=== PATIENT | male | born 1955 | race Caucasian/White ===

== ENCOUNTER 2018-07-27 17:31 | Observation (INO) ==
[2018-07-27] MEDS ORDERED: 0.9 % Sodium Chloride 500 ML IVC ONE (17:37)
[2018-07-27] MEDS ORDERED: Nitroglycerin 0.4 MG TAB.SUBL SL ONE (17:37)
--- NOTE | 2018-07-27 17:40 | Emergency Department Note ---
Disposition Clinical Impression: Alcoholism, Hypokalemia Chest pain Qualifiers: Chest pain type: unspecified Qualified Code(s): R07.9 - Chest pain, unspecified Disposition: Admitted As Inpatient Condition: Fair Referrals: Sheng Frazier DO [Primary Care Provider] - Forms: ED Satisfaction Letter Time of Disposition: 19:25 Chest Pain HPI - General Chief Complaint: ED Chest Pain Stated Complaint: chest pain Time Seen by Provider: 07/27/18 17:37 Source: patient Mode of arrival: EMS Limitations: no limitations Vital Signs Reviewed: Yes Nursing Notes Reviewed: Yes - History of Present Illness HPI Narrative: 63-year-old male with a history of tobacco use presents for evaluation of chest pain. Patient states chest pain started yesterday and has been intermittent since then. Noted to worsen prior to ED arrival. Notes anterior chest pressure without radiation. No aggravating or alleviating factors. Denies any dyspnea fevers or cough. Denies any nausea but does note some diaphoresis. Patient denies having history of heart attacks or stents. Patient presented via EMS. EMS gave full dose aspirin prior to arrival. Patient does state that he has been under a lot of stress with going through a divorce. Severity scale (1-10): 10 - Related Data Home Medications Medication Instructions Recorded Confirmed Diclofenac Sodium (24 HR) 100 mg PO DAILY 02/13/16 07/27/18 [Voltaren XR] Previous Rx's Medication Instructions Recorded Escitalopram [Lexapro] 20 mg PO DAILY #30 tablet 02/17/16 Allergies Allergy/AdvReac Type Severity Reaction Status Date / Time No Known Allergies Allergy Verified 07/27/18 17:36 All systems ED: reviewed and negative except as stated. Constitutional: Denies: fever Cardiovascular: Reports: chest pain Respiratory: Denies: cough, dyspnea, sputum production Gastrointestinal: Denies: abdominal pain, nausea, vomiting Chest Pain PMH - Past Medical History Medical history: Reports: arthritis, other Psychiatric history: Reports: depression - Social History Smoking Status: Current every day smoker Alcohol use: Reports: heavy, recent Drug use: Reports: none Physical Exam - General Limitations: no limitations General appearance: alert, in no apparent distress - Head Head exam: atraumatic, normocephalic, normal inspection - Eye Eye exam: Present: normal appearance, PERRL, EOMI - ENT ENT exam: normal exam - Neck Neck exam: Present: normal inspection - Chest Chest inspection: Present: normal inspection - Respiratory Respiratory exam: Present: normal lung sounds bilaterally. Absent: respiratory distress - Cardiovascular Cardiovascular exam: Present: regular rate, normal rhythm. Absent: systolic murmur - Abdominal Exam Abdominal exam: Present: soft, Non-Tender. Absent: guarding, rebound - Extremities Exam Extremities exam: Present: normal inspection - Back Exam Back exam: Present: normal inspection. Absent: CVA tenderness (L) - Neurological Exam Neurological exam: Present: alert, oriented X3, CN II-XII intact - Skin Skin exam: Present: warm, dry, intact, normal color Course Course Narrative: Patient arrived via EMS concerns of chest pain. Patient had aspirin prior to arrival. Patient will get cardiopulmonary evaluation with EKG, chest x-ray troponin. Patient will likely require admission for further evaluation given the patient's history and physical. - Reevaluation(s) Reevaluation #1: Patient states that the nitroglycerin did help relieve his chest pain. Patient also admits to being an alcoholic. States he drinks approximately a fifth a day. Time: 18:19 Vital Signs Temperature 97.7 F 07/27/18 17:34 Pulse Rate 82 07/27/18 17:34 Respiratory Rate 16 07/27/18 17:34 Blood Pressure 138/88 07/27/18 17:34 O2 Sat by Pulse Oximetry 100 07/27/18 17:34 Temperature 97.7 F 07/27/18 17:34 Pulse Rate 76 07/27/18 18:09 Respiratory Rate 18 07/27/18 18:09 Blood Pressure 125/73 07/27/18 18:09 O2 Sat by Pulse Oximetry 99 07/27/18 18:09 Oxygen Delivery Oxygen Delivery Room Air Chest Pain - [facility] Narrative Medical decision making narrative: Patient presented for concerns of chest pain. Patient has a negative troponin and relief of chest pain with nitroglycerin. Patient be admitted to hospital service for further evaluation and monitoring. Patient symptoms are not consistent with a pulmonary embolism or dissection. Patient also stated that he is not alcoholic. Given that information the patient had additional labs which shows low phosphorus. Patient's phosphorus as well as potassium was repleted ED. Patient is also given thiamine and folate. - Lab Data Lab results reviewed: Yes I reviewed the patient's lab results. Result diagrams: 07/27/18 17:48 07/27/18 17:48 Lab Results 07/27/18 07/27/18 07/27/18 Range/Units 17:48 17:48 17:48 WBC 6.9 (4.3-11.1) K/mcL RBC 4.16 L (4.19-5.50) M/mcL Hgb 15.6 (12.9-16.9) g/dL Hct 42.3 (37.5-50.1) % MCV 101.7 H (83.0-100.0) fL MCH 37.5 H (28.0-33.3) pg MCHC 36.9 H (31.6-35.5) g/dL RDW 13.3 (11.5-14.5) % Plt Count 94 L (140-400) K/mcL MPV 10.9 (9.4-12.4) fL Immature Gran % 0.3 (0-4) % Seg Neutrophils % 56.7 % Lymphocytes % 33.8 % Monocytes % 8.0 % Eosinophils % 0.6 % Basophils % 0.6 % Neutrophils # 3.9 (1.6-8.9) K/mcL Lymphocytes # 2.3 (0.6-4.6) K/mcL Monocytes # 0.6 (0.0-1.3) K/mcL Eosinophils # 0.0 (0.0-0.6) K/mcL Basophils # 0.0 (0.0-0.2) K/mcL PT 10.8 (9.4-12.1) Seconds INR 1.0 APTT 29.3 (26.0-36.0) Seconds Sodium (136-145) mEq/L Potassium (3.5-5.1) mEq/L Chloride (98-107) mEq/L Carbon Dioxide (23-29) mEq/L BUN (8-23) mg/dL Creatinine (0.70-1.30) mg/dL Est GFR ( Amer) (> 60) Est GFR (Non-Af Amer) (> 60) BUN/Creatinine Ratio (6-26) Glucose (70-105) mg/dL Calculated Osmolality (280-300) Calcium (8.6-10.3) mg/dL Phosphorus (2.7-4.5) mg/dL Magnesium (1.6-2.6) mg/dL Troponin I (< 0.04) ng/mL B-Natriuretic Peptide 21 (Less than 100) pg/mL 07/27/18 Range/Units 17:48 WBC (4.3-11.1) K/mcL RBC (4.19-5.50) M/mcL Hgb (12.9-16.9) g/dL Hct (37.5-50.1) % MCV (83.0-100.0) fL MCH (28.0-33.3) pg MCHC (31.6-35.5) g/dL RDW (11.5-14.5) % Plt Count (140-400) K/mcL MPV (9.4-12.4) fL Immature Gran % (0-4) % Seg Neutrophils % % Lymphocytes % % Monocytes % % Eosinophils % % Basophils % % Neutrophils # (1.6-8.9) K/mcL Lymphocytes # (0.6-4.6) K/mcL Monocytes # (0.0-1.3) K/mcL Eosinophils # (0.0-0.6) K/mcL Basophils # (0.0-0.2) K/mcL PT (9.4-12.1) Seconds INR APTT (26.0-36.0) Seconds Sodium 138 (136-145) mEq/L Potassium 3.0 L (3.5-5.1) mEq/L Chloride 98 (98-107) mEq/L Carbon Dioxide 22 L (23-29) mEq/L BUN 13 (8-23) mg/dL Creatinine 0.68 L (0.70-1.30) mg/dL Est GFR ( Amer) > 60 (> 60) Est GFR (Non-Af Amer) > 60 (> 60) BUN/Creatinine Ratio 19 (6-26) Glucose 126 H (70-105) mg/dL Calculated Osmolality 288 (280-300) Calcium 9.0 (8.6-10.3) mg/dL Phosphorus 1.6 L (2.7-4.5) mg/dL Magnesium 1.8 (1.6-2.6) mg/dL Troponin I < 0.03 (< 0.04) ng/mL B-Natriuretic Peptide (Less than 100) pg/mL - Radiology Data Radiology results reviewed: Yes I reviewed the patient's radiology results. Chest X-Ray 07/27/18 17:37 IMPRESSION: No acute process. D/ / Shoaib Johnson MD / Shoaib Johnson MD Interpreting Provider: Shoaib Johnson MD - EKG Data EKG attestation: Yes I reviewed and interpreted this EKG. EKG shows normal: sinus rhythm Rate: normal Rhythm: NSR [place]/QRS: normal Interpretation: no acute changes, nonspecific ST-T wave changes Heart Score - Score History: Moderately Suspicious EKG: Non Specific repolarisation Disturbance Age: 45-65 Risk Factors: 1-2 risk factors Troponin: Less than normal limit HEART Score Total: 4 S.B.A[place] Situation: Demographics Background: Presenting Complaint Assessment: Vital Signs, Course and respsone to treatment, Patient/Family Expectation Recommendation: Barrier(s) to disposition, Recommendation based on pending studies, treatments, or consults S.B.AJoseRJose Report Given to: Hospitalist Luba Repor Time: 19:26
--- NOTE | 2018-07-27 17:50 | Emergency Department Note ---
Disposition Clinical Impression: Chest pain Qualifiers: Chest pain type: unspecified Qualified Code(s): R07.9 - Chest pain, unspecified Disposition: Admitted As Inpatient Forms: ED Satisfaction Letter General Adult HPI - General Chief complaint: ED Chest Pain Stated complaint: chest pain Time Seen by Provider: 07/27/18 17:37 Source: patient Mode of arrival: EMS Limitations: no limitations - History of Present Illness Pain Scale: 10 - Related Data Home Medications Medication Instructions Recorded Confirmed Diclofenac Sodium (24 HR) 100 mg PO DAILY 02/13/16 02/13/16 [Voltaren XR] Oxycodone HCl/Acetaminophen 1 - 2 each PO TID PRN 02/13/16 02/13/16 [Percocet 5-325 mg Tablet] Previous Rx's Medication Instructions Recorded Chlordiazepoxide [Librium] 75 mg PO AD #62 capsule 02/17/16 Escitalopram [Lexapro] 20 mg PO DAILY #30 tablet 02/17/16 Nicotine Patch [Nicoderm] 14 mg TD DAILY #21 patch.[id number] 02/17/16 Vitamin B Complex/Vit C/Vit E 1 each PO DAILY #30 tablet 02/17/16 [Stresstab] Allergies Allergy/AdvReac Type Severity Reaction Status Date / Time No Known Allergies Allergy Verified 07/27/18 17:36 Constitutional: Denies: fever Cardiovascular: Reports: chest pain Respiratory: Denies: cough, dyspnea, sputum production Gastrointestinal: Denies: abdominal pain, nausea, vomiting Past Medical History - Past Medical History Medical history: Reports: arthritis, other Psychiatric history: Reports: depression - Social History Smoking Status: Current every day smoker Smokeless Tobacco Status: No Alcohol use: Reports: heavy, recent Drug use: Reports: none Physical Exam - General Limitations: no limitations General appearance: alert, in no apparent distress Course Vital Signs Temperature 97.7 F 07/27/18 17:34 Pulse Rate 82 07/27/18 17:34 Respiratory Rate 16 07/27/18 17:34 Blood Pressure 138/88 07/27/18 17:34 O2 Sat by Pulse Oximetry 100 07/27/18 17:34 Temperature 97.7 F 07/27/18 17:34 Pulse Rate 82 07/27/18 17:34 Respiratory Rate 16 07/27/18 17:34 Blood Pressure 138/88 07/27/18 17:34 O2 Sat by Pulse Oximetry 100 07/27/18 17:34 Oxygen Delivery Oxygen Delivery Room Air Attestation Statement - Attestation Attestation: I examined this patient and my medical decision-making was reviewed with the Resident Physician. I agree with the documented findings, disposition and treatment plan as described except to the extent set forth below. 63 year old male presents to the ED with complaints of chest pain midsternally with exertional dyspnea and diaphoresis and states that this has been going for two days. He has mutliple risk factors and EKG is nonsichemic appearing but we will admit to medicine after cardiopulmoary workup for ACS.
[2018-07-27 18:11] LABS: Basophils % 0.6 %; Eosinophils % 0.6 %; Hematocrit 42.3 % (37.5-50.1); Hemoglobin 15.6 g/dL (12.9-16.9); Immature Granulocytes % 0.3 % (0-4); Lymphocytes # 2.3 K/mcL (0.6-4.6); Lymphocytes % 33.8 %; Mean Corpuscular HGB Conc 36.9 g/dL (31.6-35.5); Mean Corpuscular Hemoglobin 37.5 pg (28.0-33.3); Mean Corpuscular Volume 101.7 fL (83.0-100.0); Mean Platelet Volume 10.9 fL (9.4-12.4); Monocytes # 0.6 K/mcL (0.0-1.3); Neutrophils # 3.9 K/mcL (1.6-8.9); Red Blood Count 4.16 M/mcL (4.19-5.50); Red Cell Distribution Width 13.3 % (11.5-14.5); Segmented Neutrophils % 56.7 %
[2018-07-27 18:12] LABS: Platelet Count 94 K/mcL (140-400)
[2018-07-27 18:16] LABS: Prothrombin Time 10.8 Seconds (9.4-12.1)
[2018-07-27 18:18] LABS: Activated Partial Thrombo Time 29.3 Seconds (26.0-36.0)
[2018-07-27 18:27] LABS: Troponin I < 0.03 ng/mL (< 0.04)
[2018-07-27 18:29] LABS: BUN/Creatinine Ratio 19 (6-26); Blood Urea Nitrogen 13 mg/dL (8-23); Carbon Dioxide 22 mEq/L (23-29); Chloride 98 mEq/L (98-107); Glucose 126 mg/dL (70-105); Osmolality,Calculated 288 (280-300); Sodium 138 mEq/L (136-145); eGFR For Non-African Americans > 60 (> 60)
[2018-07-27 18:54] LABS: Magnesium 1.8 mg/dL (1.6-2.6); Phosphorous 1.6 mg/dL (2.7-4.5)
[2018-07-27] MEDS ORDERED: Folic Acid 1 MG TABLET PO ONE (18:54)
[2018-07-27] MEDS ORDERED: Thiamine (B-1) 100 MG TABLET PO ONE (18:54)
[2018-07-28] MEDS ORDERED: *HR* LORazepam 2 MG/ML VIAL IVP PRN (05:31)
[2018-07-28] MEDS ORDERED: Naloxone 0.4 MG/ML INJ IVP PRN (05:31)
[2018-07-28] MEDS ORDERED: *HR* Promethazine 25 MG/ML VIAL IVP PRN (05:31)
--- NOTE | 2018-07-28 05:43 | Internal Med History&Physical ---
Date of Encounter: 07/28/18 Time of Encounter: 05:38 Internal Medicine - H&P: HPI Chief complaint: chest pain; epigastric pain Admitted From: Emergency Dept Plans for Post Hospital Care: Home History of present illness: Mr. Loco is a 63 year old male who presents to the ER tonight with complaints of chest pain and, more prominently, epigastric pain. Symptoms started yesterday while at rest. He has had some nausea but no vomiting. He has had no shortness of breath, no dyspnea, and no diaphoresis. Workup in the ER was negative, but he was admitted to hospitalist service nonetheless. Of note, ER relayed to me that he drinks heavy amounts of alcohol. Upon my assessment of the patient, he was having some jitters and agitation concerning for early alcohol withdrawal. He readily admits to excessive alcohol intake for the last several years. He drinks a fifth of liquor everyday to every two days. He also takes NSAIDs on a daily basis. He denies any hematemesis, melena, or hematochezia. Pain is predominantly in the epigastrium right below his xiphoid process. It radiates upwards to his chest but it starts at the epigastrium. He denies any prior heart disease or chest pain before. He still has his gallbladder and also notes that he has had some GI intolerance with fatty, greasy foods. Regarding his alcohol intake, he has gone through withdrawal on a few occasions and has been hospitalized twice for it in the past. Past Med Surg Social Fam HX - Past Medical History Attestation: Yes The following information was validated with the patient. Source: patient, old records reviewed Medical history: arthritis, other Additional medical history: chronic back pain Psychiatric history: depression - Past Surgical History Surgical History: orthopedic, other (lumbar spine surgery) Additional surgical history: lumbar laminectomy, knee scope, tonsilectomy - Social History Smoking Status: Current every day smoker Packs per day: 1.5 Smokeless Tobacco Status: No Alcohol use: heavy, recent Drug use: marijuana Current living situation: Home Activity Level: Independent ambulation Recent Out of Country Travel Within the Last 8 Weeks: No - Family History Mother Living Status: Internal Medicine - H&P: Meds Diclofenac Sodium (24 HR) [Voltaren XR] 100 mg PO DAILY 02/13/16 [History] Escitalopram [Lexapro] 20 mg PO DAILY #30 tablet 02/17/16 [Rx] 3 Allergy/AdvReac Type Severity Reaction Status Date / Time No Known Allergies Allergy Verified 07/27/18 17:36 - Constitutional Constitutional: anorexia, no chills, no fever(s), no night sweats - EENT Eyes: no blurry vision, no change in vision Ears: no ear pain, no tinnitus Nose, mouth and throat: no nasal congestion, no sinus pressure, no sore throat - Cardiovascular Cardiovascular ROS IM: chest pain, palpitations, no diaphoresis, no dyspnea, no dyspnea on exertion, no orthopnea, no syncope - Respiratory Respiratory: no cough, no hemoptysis, no chest congestion, no excessive phlegm production, no change in phlegm color - Gastrointestinal Gastrointestinal: abdominal pain (pigastrium), belching, dyspepsia, early satiety, heartburn, nausea, no diarrhea, no hematemesis, no hematochezia, no melena, no vomiting - Genitourinary Genitourinary ROS male: no dysuria, no flank pain, no hematuria - Musculoskeletal Musculoskeletal ROS IM: back pain, no arthralgias - Integumentary Integumentary IM: no rash, no jaundice - Neurological Neurological ROS: tremor(s), no dizziness, no focal weakness, no frequent falls , no headache(s) - Psychiatric Psychiatric: anxiety - Endocrine Endocrine IM: flushing, no polydipsia, no polyuria - Hematologic/Lymphatic Hematologic/Lymphatic: easy bruising - Allergic/Immunologic Allergic/Immunologic: GI upset with certain foods, no wheezing - Constitutional Vitals: Temp Pulse Resp BP Pulse Ox 98.0 F 75 16 125/68 94 07/28/18 03:50 07/28/18 03:50 07/28/18 03:50 07/28/18 03:50 07/28/18 03:50 General appearance: Present: cooperative, mild distress, A&O X 3, answers questions appropriately Exam: jittery, agitated, early withdrawal - Head Head exam: Present: atraumatic, normal inspection - Eye Eye exam: Present: EOMI, PERRL. Absent: scleral icterus Pupils: Present: normal accommodation - ENT ENT exam: Present: mucous membranes dry, normal exam, normal oropharynx - Neck Neck exam general surgery: Present: full ROM, supple. Absent: tenderness, nuchal rigidity, thyromegaly - Respiratory Respiratory exam: Present: CTAB. Absent: chest wall tenderness, rales, respiratory distress, rhonchi, wheezes - Cardiovascular Cardiovascular exam: Present: distant heart sounds, RRR, +S1, +S2. Absent: diastolic murmur, systolic murmur - GI/Abdominal GI/Abdominal exam: Present: hepatomegaly, normal bowel sounds, tenderness ( epigastrium), no peritoneal signs. Absent: guarding, mass, rebound, splenomegaly - Extremities Exam Extremities exam: Present: joint swelling, warm, radial pulses palpable and symmetrical. Absent: calf tenderness, pedal edema, tenderness - Back Exam Back exam: Absent: CVA tenderness (L), CVA tenderness (R) - Neurological Exam Neurological exam: Present: alert, CN II-XII intact, oriented X3, no focal deficits Additional comments: jittery and agitated - Psychiatric Psychiatric exam: Present: agitated, anxious. Absent: homicidal ideation, suicidal ideation - Skin Skin exam: Present: dry, intact, warm Internal Med - H&P Results - Labs CBC & Chem 7: 07/27/18 17:48 07/27/18 17:48 - EKG Data -: EKG Interpreted by Myself - EKG Data Prior EKG available for review: no EKG comments: 07/28/18 05:51 poor quality tracing; baseline artifact; recommend repeat EKG - Diagnostic Studies Chest x-ray Status: image reviewed by me (negative) - Assessment and plan (1) Chest pain Current Visit: Yes Status: Acute Assessment and plan: 1. Will trend troponins, EKG's, and order ECHO. 2. Do not suspect cardiac source of pain; rather, suspect GI (pancreas, gastritis, or GB disease). 3. May warrant ischemic cardiac work-up this admission or outpatient. Qualifiers: Chest pain type: other chest pain Qualified Code(s): R07.89 - Other chest pain; R07.8 - Other chest pain (2) Epigastric abdominal pain Current Visit: Yes Status: Acute Assessment and plan: 1. Suspect gastritis vs ulcer vs pancreatitis due to alcohol abuse and NSAID abuse. 2. Will keep npo. 3. Will order amylase and lipase. 4. Will treat with IV PPI BID and oral Carafate. 5. Consult GI as he needs EGD. 6. Will order GB ultrasound. (3) Hypophosphatemia Current Visit: Yes Status: Acute Assessment and plan: 1. Keep npo until phosphorous level repleted. 2. Will give IV Potassium phosphate an recheck levels at noon. 3. Likely due to malnutrition and alcohol abuse. (4) DVT prophylaxis Current Visit: Yes Status: Acute Assessment and plan: 1. EPCD's. (5) Alcoholism Current Visit: Yes Status: Acute Assessment and plan: 1. Will place on CIWA protocol. 2. Patient already exhibiting early withdrawal symptoms. 3. Will schedule Librium in addition to CIWA protocol. 4. Will [address] on MVI/Thiamine/Folate in IVF.
[2018-07-28] MEDS: Pantoprazole 40 MG VIAL IVP SCH ×2 (06:05→17:22)
[2018-07-28] MEDS: 0.9 % Sodium Chloride 1,000 ML IVC SCH (06:05)
[2018-07-28 07:25] LABS: Amylase 44 Units/L (29-103); Lipase 276 Units/L (11-82)
[2018-07-28] MEDS: Sucralfate 1 GM TABLET PO SCH ×4 (09:30→20:52)
--- NOTE | 2018-07-28 10:55 | Gastroenterology Consult Note ---
<Shoaib Gonzalez - Last Filed: 07/28/18 10:52> Date of Encounter: 07/28/18 Time of Encounter: 10:30 - Assessment and plan (1) Epigastric abdominal pain Current Visit: Yes Status: Acute Assessment and plan: Plan for EGD today to r/o esophagitis, gastritis, duodenitis, PUD, MW tear, or AVM. Keep patient NPO for scope. Continue PPI and Carafate. (2) Chest pain Current Visit: Yes Status: Acute Assessment and plan: Troponin negative x2. Qualifiers: Chest pain type: other chest pain Qualified Code(s): R07.89 - Other chest pain; R07.8 - Other chest pain (3) Alcoholism Current Visit: Yes Status: Acute Assessment and plan: Concern for cirrhosis. Platelets low at 94, complete RUQ US and check liver work up. (4) Thrombocytopenia Current Visit: Yes Status: Acute Assessment and plan: Platelets 94 on admission. Concern for cirrhosis. RUQ US has been ordered. Complete liver work up. Thrombocytopenia dates back to 10/17/2015 with Plts of 108. - Time Spent With Patient Total time spent is greater than 50% in coordination of care (as documented) at patient's floor/unit and/or counseling patient: GI History of Present Illness - Data of Consult Patient: new to practice Consult date: 07/28/18 Requesting Physician: Claudio Lancaster MD - Consult Narrative Reason for consult: Epigastric pain History of present illness: Mr. Loco is a 63 year old male with PMHx of arthritis who presented to the ED with complaints of chest pain and epigastric pain which started the day before admission. Pain starts in epigastric region and radiates up into his chest. He states alcohol made the pain worse. He states he has not eaten since Friday and is only drinking hard liquor. Troponins were negative x 2. He reports nausea but denies vomiting. He was started on BID PPI and Carafate. Lipase was elevated to 276. Gallbladder ultrasound was ordered. He denies fever , chills, shortness of breath, vomiting, diarrhea, constipations, melena, or hematochezia. He takes NSAIDs daily and drinks excessive amount of alcohol for the last several years. He admits to being an alcoholic. He has gone through withdrawal on a few occasions and has been hospitalized twice for it in the past. Procedures: EGD 02/06/2001 Dr. Andrade: Nonspecific chronic gastric inflammation. NSAIDs: Diclofenac Anticoagualtion: None Past Med Surg Social Fam HX - Past Medical History Medical history: arthritis, other Additional medical history: chronic back pain Psychiatric history: depression - Past Surgical History Surgical History: orthopedic, other (lumbar spine surgery) Additional surgical history: lumbar laminectomy, knee scope, tonsilectomy - Social History Smoking Status: Current every day smoker Packs per day: 1.5 Smokeless Tobacco Status: No Alcohol use: heavy, recent Drug use: marijuana - Family History Mother Living Status: - Gastrointestinal Gastrointestinal: Present: as per HPI - Constitutional Constitutional: as per HPI - EENT Eyes: as per HPI Ears: Present: as per HPI Nose, mouth and throat: Present: as per HPI - Cardiovascular Cardiovascular ROS: Present: as per HPI - Respiratory Respiratory IM: Present: as per HPI - Genitourinary Genitourinary: Absent: change in color, Urinary frequency - Neurological ROS Neurological GI: Present: as per HPI - Hematologic/Lymphatic Hematologic/Lymphatic pediatric: Present: as per HPI - Musculoskeletal Musculoskeletal ROS GI: Present: as per HPI - Integumentary Integumentary GI: Present: as per HPI - Psychiatric ROS Psychiatric GI: Present: as per HPI - Endocrine Endocrine IM: Present: as per HPI - Constitutional Vitals: Temp Pulse Resp BP Pulse Ox 98.0 F 86 17 145/82 97 07/28/18 08:07 07/28/18 08:07 07/28/18 08:07 07/28/18 08:07 07/28/18 08:07 General appearance: Present: cooperative, A&O X 3, no acute distress, answers questions appropriately - Head Head exam: Present: atraumatic, normocephalic - Eye Eye exam: Present: normal appearance, sclera anicteric - ENT ENT exam: Present: mucous membranes dry - Neck Neck exam general surgery: Present: normal inspection, trachea midline - Respiratory Respiratory exam: Present: CTAB. Absent: rales, rhonchi - Cardiovascular Cardiovascular exam: Present: RRR, +S1, +S2 - GI/Abdominal GI/Abdominal exam: Present: soft, tenderness (Mild epigastric tenderness), no peritoneal signs. Absent: distended, firm, guarding - Rectal Rectal exam: Present: deferred - Extremities Exam Extremities exam: Present: warm - Neurological Exam Neurological exam: Present: no focal deficits - Psychiatric Psychiatric exam: Present: normal affect, normal mood - Skin Skin exam: Present: dry, intact, normal color, warm Results - Labs CBC & Chem 7: 07/27/18 17:48 07/27/18 17:48 Labs: Last Result Calcium 9.0 mg/dL (8.6-10.3) 07/27/18 17:48 Troponin I < 0.03 ng/mL (< 0.04) 07/28/18 06:01 Entire Visit Hgb 15.6 g/dL (12.9-16.9) 07/27/18 17:48 Hct 42.3 % (37.5-50.1) 07/27/18 17:48 PT 10.8 Seconds (9.4-12.1) 07/27/18 17:48 Amylase 44 Units/L (29-103) 07/28/18 06:01 Lipase 276 Units/L (11-82) H 07/28/18 06:01 - ABG ABG results: PT/INR, D-dimer PT 10.8 Seconds (9.4-12.1) 07/27/18 17:48 - Impressions Impressions Gallbladder Ultrasound 07/28/18 10:00 IMPRESSION: 1. Cholelithiasis without evidence for acute cholecystitis 2. Fatty infiltration of the liver D/ / Shoaib Johnson MD / Shoaib Johnson MD Interpreting Provider: Shoaib Johnson MD Consult Discharge Plan - Plan Referrals: Sheng Frazier DO [Primary Care Provider] - <Alisa Ansari - Last Filed: 07/28/18 14:20> Date of Encounter: 07/28/18 Time of Encounter: 13:00 - Time Spent With Patient Total time spent is greater than 50% in coordination of care (as documented) at patient's floor/unit and/or counseling patient: GI History of Present Illness - Data of Consult Requesting Physician: Claudio Lancaster MD - Consult Narrative History of present illness: Mr. Loco is a 63 year old male - Constitutional Vitals: Temp Pulse Resp BP Pulse Ox 98.3 F 93 16 159/86 97 07/28/18 11:00 07/28/18 13:28 07/28/18 13:28 07/28/18 13:28 07/28/18 13:28 Results - Labs CBC & Chem 7: 07/27/18 17:48 07/28/18 12:25 Labs: Last Result Calcium 8.8 mg/dL (8.6-10.3) 07/28/18 12:25 Ferritin 1413 ng/mL (20-250) H 07/28/18 12:25 Troponin I < 0.03 ng/mL (< 0.04) 07/28/18 12:25 Entire Visit Hgb 15.6 g/dL (12.9-16.9) 07/27/18 17:48 Hct 42.3 % (37.5-50.1) 07/27/18 17:48 PT 10.8 Seconds (9.4-12.1) 07/27/18 17:48 Ferritin 1413 ng/mL (20-250) H 07/28/18 12:25 Total Bilirubin 2.2 mg/dL (0.3-1.0) H 07/28/18 12:25 AST 171 Units/L (13-39) H 07/28/18 12:25 ALT 93 Units/L (7-52) H 07/28/18 12:25 Amylase 44 Units/L (29-103) 07/28/18 06:01 Lipase 276 Units/L (11-82) H 07/28/18 06:01 - ABG ABG results: PT/INR, D-dimer PT 10.8 Seconds (9.4-12.1) 07/27/18 17:48 - Impressions Impressions Gallbladder Ultrasound 07/28/18 10:00 IMPRESSION: 1. Cholelithiasis without evidence for acute cholecystitis 2. Fatty infiltration of the liver D/ / Shoaib Johnson MD / Shoaib Johnsno MD Interpreting Provider: Shoaib Johnson MD - Attending Attestation I have personally performed a face to face evaluation on this patient. I have reviewed and agree with the care plan. History and Exam by me shows: Patient seen. Patient with complaint of left-sided upper abdominal pain for 1 week. per Patient with pancreatitis he gets a pain in the epigastrium and this pain is different. Exam : Abdomen is soft does has mild tenderness. A: Abd abdominal pain due to Alcoholic pancreatitis, rule out gastric etiology for his abdominal pain as per patient this pain is different. Rec: EGD to rule out peptic ulcer disease gastritis etc. Meanwhile IV fluids and pain control. If The pain persists then will need a CT with IV contrast of the abdomen to rule out any local complications due to pancreatitis
--- NOTE | 2018-07-28 11:57 | Anesthesia Evaluation PreOp ---
Date of Encounter: 07/28/18 Time of Encounter: 11:55 - Past History Planned Operation: EGD Cardiac History: Denies any Significant Hx Pulmonary History: Smoker (1-2ppd x 45yrs) Other Medical History: Hepatic (Hx EtOH hepatitis), GERD (Hx gastritis), Other ( Daily NSAID intake) Anesthesia History: No Prior Anesthetic Complications, Past Anesthesia (T&A, Lumbar laminectomy,knee scope) Alcohol Use: heavy (Excessive EtOH intake/"Daily Fifth" of liquor. Admitted via ED for Withdrawal/EtOH detox 2015), recent Drug use: marijuana Medications and Allergies Diclofenac Sodium (24 HR) [Voltaren XR] 100 mg PO DAILY 02/13/16 [History] Escitalopram [Lexapro] 20 mg PO DAILY #30 tablet 02/17/16 [Rx] 3 Allergy/AdvReac Type Severity Reaction Status Date / Time No Known Allergies Allergy Verified 07/27/18 17:36 - Meds/Allergy Pre-op Review Medications Reviewed: Yes Allergies Reviewed: Yes Beta Blockers on Current Med List: No Anesthesia Results - Labs 07/27/18 17:48 07/28/18 12:25 Laboratory Results WBC 6.9 K/mcL (4.3-11.1) 07/27/18 17:48 RBC 4.16 M/mcL (4.19-5.50) L 07/27/18 17:48 Hgb 15.6 g/dL (12.9-16.9) 07/27/18 17:48 Hct 42.3 % (37.5-50.1) 07/27/18 17:48 MCV 101.7 fL (83.0-100.0) H 07/27/18 17:48 MCH 37.5 pg (28.0-33.3) H 07/27/18 17:48 MCHC 36.9 g/dL (31.6-35.5) H 07/27/18 17:48 RDW 13.3 % (11.5-14.5) 07/27/18 17:48 Plt Count 94 K/mcL (140-400) L 07/27/18 17:48 MPV 10.9 fL (9.4-12.4) 07/27/18 17:48 Immature Gran % 0.3 % (0-4) 07/27/18 17:48 Seg Neutrophils % 56.7 % 07/27/18 17:48 Lymphocytes % 33.8 % 07/27/18 17:48 Monocytes % 8.0 % 07/27/18 17:48 Eosinophils % 0.6 % 07/27/18 17:48 Basophils % 0.6 % 07/27/18 17:48 Neutrophils # 3.9 K/mcL (1.6-8.9) 07/27/18 17:48 Lymphocytes # 2.3 K/mcL (0.6-4.6) 07/27/18 17:48 Monocytes # 0.6 K/mcL (0.0-1.3) 07/27/18 17:48 Eosinophils # 0.0 K/mcL (0.0-0.6) 07/27/18 17:48 Basophils # 0.0 K/mcL (0.0-0.2) 07/27/18 17:48 PT 10.8 Seconds (9.4-12.1) 07/27/18 17:48 INR 1.0 07/27/18 17:48 APTT 29.3 Seconds (26.0-36.0) 07/27/18 17:48 Sodium 138 mEq/L (136-145) 07/27/18 17:48 Potassium 3.0 mEq/L (3.5-5.1) L 07/27/18 17:48 Chloride 98 mEq/L (98-107) 07/27/18 17:48 Carbon Dioxide 22 mEq/L (23-29) L 07/27/18 17:48 BUN 13 mg/dL (8-23) 07/27/18 17:48 Creatinine 0.68 mg/dL (0.70-1.30) L 07/27/18 17:48 Est GFR ( Amer) > 60 (> 60) 07/27/18 17:48 Est GFR (Non-Af Amer) > 60 (> 60) 07/27/18 17:48 BUN/Creatinine Ratio 19 (6-26) 07/27/18 17:48 Glucose 126 mg/dL (70-105) H 07/27/18 17:48 Calculated Osmolality 288 (280-300) 07/27/18 17:48 Calcium 9.0 mg/dL (8.6-10.3) 07/27/18 17:48 Phosphorus 1.6 mg/dL (2.7-4.5) L 07/27/18 17:48 Magnesium 1.8 mg/dL (1.6-2.6) 07/27/18 17:48 Troponin I < 0.03 ng/mL (< 0.04) 07/28/18 06:01 B-Natriuretic Peptide 21 pg/mL (Less than 100) 07/27/18 17:48 Amylase 44 Units/L (29-103) 07/28/18 06:01 Lipase 276 Units/L (11-82) H 07/28/18 06:01 Impressions Chest X-Ray 07/27/18 17:37 IMPRESSION: No acute process. D/ / Shoaib Johnson MD / Shoaib Johnson MD Interpreting Provider: Shoaib Johnson MD Gallbladder Ultrasound 07/28/18 10:00 IMPRESSION: 1. Cholelithiasis without evidence for acute cholecystitis 2. Fatty infiltration of the liver D/ / Shoaib Johnson MD / Shoaib Johnson MD Interpreting Provider: Shoaib Johnson MD Anesthesia Exam Vital Signs Temp Pulse Resp BP Pulse Ox 07/28/18 11:00 98.3 F 64 17 150/76 96 07/28/18 08:07 98.0 F 86 17 145/82 97 07/28/18 03:50 98.0 F 75 16 125/68 94 07/27/18 23:39 98.3 F 64 16 152/77 97 07/27/18 21:44 83 19 140/81 100 07/27/18 20:26 59 16 133/76 99 07/27/18 18:09 76 18 125/73 99 07/27/18 17:34 97.7 F 82 16 138/88 100 Intake and Output 07/27/18 07/28/18 07/28/18 23:59 07:59 15:59 Intake Total 500 / 500 Output Total 0 / 0 0 / 0 200 / 200 Balance 500 / 500 0 / 0 -200 / -200 Intake: IV Fluids 500 / 500 0.9 % Sodium Chloride 500 ML @ 500 / 500 999 mls/hr IVC .Q31M ONE Rx#: [id number] Output: Urine 0 / 0 0 / 0 200 / 200 Other: Meal NPO Weight 82.4 kg Height: 6' Weight: 181# BMI = 25 NPO (# of Hours): MNoc - HEENT Pupil (Motor): Pupils equal, EOMI Mallampati: II Teeth: Normal Oral Opening: Greater than 3 - [employer] LOC: Oriented [employer] Motor: Normal RUE, Normal LUE, Normal RLE, Normal LLE, Normal Face [employer] Sensory: Normal: RUE, LUE, RLE, LLE, Face - Cardiac Rhythm: Regular Murmur: None - Pulmonary Breath Sounds: bilateral Clear Respiratory Effort: Symmetrical Anesthesia Assess/Plan ASA Score: 3 Modified Clifton Scale for Level of Consciousness: Cooperative, oriented, and tranquil (EtOH dependence, Smoker, Anxiety/Depression) Anesthetic Plan: MAC Monitoring Plan: Standard Monitors Recovery Plan: Other Anes Supervising Prov Stmt: Pt seen/evaluated, R&B discussed, questions answered and consent obtained. Henry Cespedes MD
[2018-07-28] MEDS ORDERED: Propofol 500 MG/50 ML INFUS..BTL ONE (12:28)
[2018-07-28 13:05] LABS: Albumin 3.6 g/dL (3.5-5.7); Albumin/Globulin Ratio 1.1 (1.1-2.2); BUN/Creatinine Ratio 23 (6-26); Bilirubin,Direct 1.1 mg/dL (0.0-0.2); Bilirubin,Indirect 1.1 mg/dL (0.0-1.2); Bilirubin,Total 2.2 mg/dL (0.3-1.0); Blood Urea Nitrogen 13 mg/dL (8-23); Calcium 8.8 mg/dL (8.6-10.3); Carbon Dioxide 24 mEq/L (23-29); Chloride 98 mEq/L (98-107); Globulin 3.4 g/dL (2.4-3.5); Glucose 80 mg/dL (70-105); Magnesium 1.6 mg/dL (1.6-2.6); Osmolality,Calculated 283 (280-300); Phosphorous 2.9 mg/dL (2.7-4.5); Potassium 3.3 mEq/L (3.5-5.1); Sodium 137 mEq/L (136-145); eGFR For Non-African Americans > 60 (> 60)
[2018-07-28] MEDS ORDERED: Isovue-370 500 ML INFUS..BTL IV ONE (16:12)
--- NOTE | 2018-07-28 16:13 | Internal Med Progress Note ---
Hospitalist Progress Note - Encounter Date of Encounter: 07/28/18 Time of Encounter: 16:18 - Subjective Interval History: Pt reports having LUQ pain. Denies N/V fever or chills. Denies diarrhea. - Exam Vitals: Temp Pulse Resp BP Pulse Ox 99.3 F 69 16 155/90 97 07/28/18 15:23 07/28/18 15:23 07/28/18 15:23 07/28/18 15:23 07/28/18 13:28 Exam: General appearance: Present: cooperative, mild distress, A&O X 3, answers questions appropriately Exam: jittery, agitated, early withdrawal - Head Head exam: Present: atraumatic, normal inspection - Eye Eye exam: Present: EOMI, PERRL. Absent: scleral icterus Pupils: Present: normal accommodation - ENT ENT exam: Present: mucous membranes dry, normal exam, normal oropharynx - Neck Neck exam general surgery: Present: full ROM, supple. Absent: tenderness, nuchal rigidity, thyromegaly - Respiratory Respiratory exam: Present: CTAB. Absent: chest wall tenderness, rales, respiratory distress, rhonchi, wheezes - Cardiovascular Cardiovascular exam: Present: distant heart sounds, RRR, +S1, +S2. Absent: diastolic murmur, systolic murmur - GI/Abdominal GI/Abdominal exam: Present: hepatomegaly, normal bowel sounds, tenderness ( epigastrium), no peritoneal signs. Absent: guarding, mass, rebound, splenomegaly - Extremities Exam Extremities exam: Present: joint swelling, warm, radial pulses palpable and symmetrical. Absent: calf tenderness, pedal edema, tenderness - Back Exam Back exam: Absent: CVA tenderness (L), CVA tenderness (R) - Neurological Exam Neurological exam: Present: alert, CN II-XII intact, oriented X3, no focal deficits Additional comments: jittery and agitated - Psychiatric Psychiatric exam: Present: agitated, anxious. Absent: homicidal ideation, suicidal ideation - Skin Skin exam: Present: dry, intact, warm - Assessment and Plan (1) Acute chest pain Current Visit: Yes Status: Acute Assessment and Plan: 1. Troponins < 0.03. EKG prn, and ECHO ordered. 2. Do not suspect cardiac source of pain; rather, suspect GI. 3. Abdominal US positive for gall stones with cholecytitis. Lipase elevated and checking Ct to assess for acute pancreastitis. (2) Alcohol withdrawal syndrome Current Visit: No Status: Acute Assessment and Plan: Will start on Librium taper. Will monitor for delirium. (3) Epigastric abdominal pain Current Visit: Yes Status: Acute Assessment and Plan: Lipase elevated. Will check CT abdomen to assess for acute pancreatitis. Will order prn pain control. Continue with fluids. Will switch to clear liquid diet for now. (4) Hypophosphatemia Current Visit: Yes Status: Acute Assessment and Plan: Phos 1.6 on admission and replaced. Now 2.9. (5) Acute pancreatitis Current Visit: Yes Status: Acute Assessment and Plan: Lipase 276. (6) Cholelithiasis Current Visit: Yes Status: Acute Assessment and Plan: Pt not reporting RUQ pain at this time. Will recommend out pt follow up with surgery. (7) Hemochromatosis Current Visit: Yes Status: Acute (8) Elevated ferritin level Current Visit: Yes Status: Acute Assessment and Plan: Will consider work up for hemochromatosis. Will consult heme onc. - Time Spent with Patient Total time spent is greater than 50% in coordination of care (as documented) at patient's floor/unit and/or counseling patient: Internal Medicine: Result - Labs CBC & Chem 7: 07/27/18 17:48 07/28/18 12:25 Labs: BMP 07/28/18 12:25 Sodium 137 Potassium 3.3 L Chloride 98 Carbon Dioxide 24 BUN 13 Creatinine 0.57 L Glucose 80 Calcium 8.8 Cardiac Enzymes 07/28/18 07/28/18 Range/Units 06:01 12:25 Troponin I < 0.03 < 0.03 (< 0.04) ng/mL Liver Function 07/28/18 Range/Units 12:25 Total Bilirubin 2.2 H (0.3-1.0) mg/dL Direct Bilirubin 1.1 H (0.0-0.2) mg/dL AST 171 H (13-39) Units/L ALT 93 H (7-52) Units/L Alkaline Phosphatase 149 H (34-104) Units/L Albumin 3.6 (3.5-5.7) g/dL - ABG Interpretation ABG results: PT/INR, D-dimer PT 10.8 Seconds (9.4-12.1) 07/27/18 17:48 - Impressions Impressions Gallbladder Ultrasound 07/28/18 10:00 IMPRESSION: 1. Cholelithiasis without evidence for acute cholecystitis 2. Fatty infiltration of the liver D/ / Shoaib Jhonson MD / Shoaib Johnson MD Interpreting Provider: Shoaib Johnson MD Consult Discharge Plan - Plan Referrals: Sheng Frazier DO [Primary Care Provider] - (2) Alcohol withdrawal syndrome Qualifiers: Complication of substance-induced condition: uncomplicated Qualified Code(s) : F10.230 - Alcohol dependence with withdrawal, uncomplicated
[2018-07-28 17:40] LABS: % Iron Saturation 35 % (20-55); Iron 73 mcg/dL (65-175); Transferrin 149 mg/dL (203-362)
[2018-07-28] MEDS ORDERED: Thiamine (B-1) 100 MG, Folic Acid 1 MG, MVI, adult with vitamin K 10 ML in 0.9 % Sodi... IVPB SCH (18:00)
[2018-07-28] MEDS ORDERED: Nicotine 21 MG PATCH.TD24 TD SCH (21:00)
[2018-07-29] MEDS: 0.9 % Sodium Chloride 1,000 ML IVC SCH
[2018-07-29 02:34] LABS: Hepatitis A Antibody IgM Nonreactive (Nonreactive); Hepatitis B Core IgM Nonreactive (Nonreactive); Hepatitis B Surface Antigen Nonreactive (Nonreactive); Hepatitis C Virus Antibody Nonreactive (Nonreactive)
[2018-07-29 04:51] LABS: Basophils % 0.4 %; Red Cell Distribution Width 13.2 % (11.5-14.5)
[2018-07-29 04:53] LABS: Eosinophils # 0.1 K/mcL (0.0-0.6); Eosinophils % 1.1 %; Hematocrit 34.9 % (37.5-50.1); Hemoglobin 12.5 g/dL (12.9-16.9); Immature Granulocytes % 0.4 % (0-4); Immature Platelets 9.9 % (1.1-6.1); Lymphocytes # 1.5 K/mcL (0.6-4.6); Lymphocytes % 26.9 %; Mean Corpuscular HGB Conc 35.8 g/dL (31.6-35.5); Mean Corpuscular Hemoglobin 37.1 pg (28.0-33.3); Mean Corpuscular Volume 103.6 fL (83.0-100.0); Mean Platelet Volume 11.4 fL (9.4-12.4); Monocytes # 0.5 K/mcL (0.0-1.3); Neutrophils # 3.3 K/mcL (1.6-8.9); Red Blood Count 3.37 M/mcL (4.19-5.50); Segmented Neutrophils % 61.2 %
[2018-07-29 04:57] LABS: INR 1.1; Prothrombin Time 11.9 Seconds (9.4-12.1)
[2018-07-29 04:59] LABS: Activated Partial Thrombo Time 28.6 Seconds (26.0-36.0)
[2018-07-29 05:08] LABS: % Iron Saturation 37 % (20-55); Iron 71 mcg/dL (65-175); Transferrin 137 mg/dL (203-362)
[2018-07-29 05:10] LABS: Platelet Count 59 K/mcL (140-400)
[2018-07-29 05:11] LABS: Alanine Aminotransferase 81 Units/L (7-52); Albumin 3.2 g/dL (3.5-5.7); Albumin/Globulin Ratio 1.1 (1.1-2.2); Alkaline Phosphatase 131 Units/L (34-104); Aspartate Amino Transferase 158 Units/L (13-39); BUN/Creatinine Ratio 15 (6-26); Bilirubin,Total 1.6 mg/dL (0.3-1.0); Blood Urea Nitrogen 7 mg/dL (8-23); Calcium 8.3 mg/dL (8.6-10.3); Carbon Dioxide 26 mEq/L (23-29); Chloride 101 mEq/L (98-107); Chol/HDL Ratio 1.6 (0-4.9); Cholesterol 123 mg/dL (< 200); Globulin 2.8 g/dL (2.4-3.5); Glucose 92 mg/dL (70-105); HDL Cholesterol 79 mg/dL (40-59); LDL Cholesterol,Calculated 36 mg/dL (0-99); Magnesium 1.4 mg/dL (1.6-2.6); Osmolality,Calculated 280 (280-300); Phosphorous 2.5 mg/dL (2.7-4.5); Potassium 2.7 mEq/L (3.5-5.1); Sodium 136 mEq/L (136-145); Triglycerides 38 mg/dL (< 150); eGFR For Non-African Americans > 60 (> 60)
[2018-07-29] MEDS: Pantoprazole 40 MG VIAL IVP SCH (06:09)
[2018-07-29] MEDS: Sucralfate 1 GM TABLET PO SCH ×2 (06:09→09:54)
[2018-07-29 12:08] VITALS: BP 148/78
--- NOTE | 2018-07-29 13:42 | Discharge Summary ---
- NOTES TO OUTPATIENT PROVIDER Notes to Outpatient Provider: PCP in 5 to 7 days. Orders not resulted at time of discharge: Pending orders 07/28/18 06:00 ECG 12 lead ECG [ECG] AM 0600 07/28/18 12:25 AFP Tumor Marker Non- Routine TAMI IgG PHYLLIS rflx IFA Routine [id number] Routine Ceruloplasmin Routine F-Actin IgG Reflex Sm Muscle Routine MPO/PR3 (ANCA) Antibodies Routine Mitochondrial M2 Antibody, IgG Routine 07/28/18 14:03 Surgical Pathology [PTH] Routine Date of Encounter: 07/29/18 Time of Encounter: 13:42 - Discharge Diagnosis (1) Acute chest pain Priority: Primary Status: Acute Assessment and Plan: Chest pain resolved. Troponin neg x 2. EKG did not show acute ST or T wave abnormality. Chest x ray XR/XR chest 1V portable IMPRESSION: No acute process. echo results 07/28/18 EV/EV echocardiogram Impressions: LVEF 60%. Normal LV chamber size and function. Mild concentric left ventricular hypertrophy. Mild left ventricular diastolic dysfunction. Normal right ventricular structure and function. No evidence of pulmonary hypertension. No significant valvular dysfunction. (2) Alcohol withdrawal syndrome Priority: Primary Status: Acute Assessment and Plan: Improved and almost completely resolved.Will discharge on Librium taper. Qualifiers: Complication of substance-induced condition: uncomplicated Qualified Code(s ): F10.230 - Alcohol dependence with withdrawal, uncomplicated (3) Epigastric abdominal pain Priority: Secondary Status: Acute Assessment and Plan: Pt states abdominal pain resolved. Denies N/V constipation or diarrhea. CT abdomen showing possible colitis. Pancreas read as normal on CT abdomen. Pt also seen by GI and s/p EGD which pt was informed was without acute problems (4) Hypophosphatemia Priority: Secondary Status: Acute Assessment and Plan: Phos 1.6 on admission and replaced. Now 2.9. (5) Acute pancreatitis Priority: Secondary Status: Acute Assessment and Plan: Lipase 276 07/28/18. CT abdomen showing normal pancrease. Pt has been on fluids, prn pain control, and bowel rest. Lipase today 201. Will advance diet and see how he does. Qualifiers: Qualified Code(s): K85.90 - Acute pancreatitis without necrosis or infection , unspecified (6) Cholelithiasis Priority: Secondary Status: Acute Assessment and Plan: Pt not reporting RUQ pain at this time. Will recommend out pt follow up with PCP for surgery refferal. Abdominal US positive for gall stones without cholecytitis. Qualifiers: Qualified Code(s): K80.20 - Calculus of gallbladder without cholecystitis without obstruction (7) Elevated ferritin level Priority: Secondary Status: Acute Assessment and Plan: % saturation is normal. Therefore elevated ferritin likely acute phase reactant. Follow up out pt with PCP for repeat blood work and monitoring. (8) Elevated transaminase level Priority: Secondary Status: Acute Assessment and Plan: Pt likely has ETOH hepatosis. CT abdomen showing severe hepatic steatosis. Lipid profile showing HDL 79, LDL 36, trigs 38, cholesterol 123. (9) Lung nodule < 6cm on CT Priority: Secondary Status: Acute Assessment and Plan: Recommend follow up imaging in 12 months. (10) Thrombocytopenia Priority: Secondary Status: Acute Assessment and Plan: Pt's plt 94 on admission. He has received fluids since then and plt now likely dilusional. Pt's DVT prophylaxis during his admission was SCD. likely related to ETOH history. Recommend out pt follow up with PCP. Hospital course: Mr. Loco is a 63 year old male with hx of ETOH dependence. Pt admitted for ACS rule out and management of ETOH withdrawal symptoms. Daughter at bedside and with pt's permission updated the daughter on pt's medical status and current recommendations. See assessment and plan for hospital course. Discharge discussed with: patient, family - Time Spent with Patient Total time spent providing and/or coordinating discharge services: Greater than 30 minutes - Discharge Medications Prescriptions: Chlordiazepoxide [Librium] See Taper PO TID 5 Days #5 capsule Home Medications: Diclofenac Sodium (24 HR) [Voltaren XR] 100 mg PO DAILY 02/13/16 [History] Escitalopram [Lexapro] 20 mg PO DAILY #30 tablet 02/17/16 [Rx] Chlordiazepoxide [Librium] See Taper PO TID 5 Days #5 capsule 07/29/18 [Rx] Allergies/Adverse Reactions: 3 Allergy/AdvReac Type Severity Reaction Status Date / Time No Known Allergies Allergy Verified 07/27/18 17:36 Date of admission: 07/27/18 22:15 Primary care physician: Sheng R Colopy Consults: 07/28/18 05:36 Consult to Gastroenterology [CONS] Routine Consulting Provider: Gastroenterology Mora Reason for Consult: epigastric pain; NSADI use; needs EGD Call Completed: No Discharging clinician: Katrin Ramirez Anticipated date of discharge: 07/29/18 - Constitutional Vitals: Temp Pulse Resp BP Pulse Ox 99.2 F 80 16 148/78 97 07/29/18 12:06 07/29/18 12:06 07/29/18 12:06 07/29/18 12:06 07/29/18 12:06 General appearance: Present: cooperative, mild distress, A&O X 3, answers questions appropriately Exam: m - Head Head exam: Present: atraumatic, normocephalic - Eye Eye exam: Present: PERRL, conjuntiva pink, sclera anicteric Pupils: Present: PERRL - Neck Neck exam general surgery: Present: supple, trachea midline. Absent: lymphadenopathy - Respiratory Respiratory exam: Present: CTAB. Absent: accessory muscle use, rales, rhonchi, wheezes - Cardiovascular Cardiovascular exam: Present: RRR, +S1, +S2. Absent: diastolic murmur, gallop, rubs, systolic murmur - GI/Abdominal GI/Abdominal exam: Present: normal bowel sounds, soft, no peritoneal signs. Absent: distended, tenderness - Extremities Exam Extremities exam: Present: warm, radial pulses palpable and symmetrical. Absent : calf tenderness, cyanotic, pedal edema - Neurological Exam Neurological exam: Present: CN II-XII intact, oriented X3, no focal deficits. Absent: pronater drift, facial droop, speech deficit - Skin Skin exam: Present: dry, intact - Patient Status Disposition: Home, Self-Care Condition: Fair Overall status at discharge: patient is back to baseline - Discharge Instructions Follow Up With: Sheng Frazier DO [Primary Care Provider] - - Diet and Activity Activity: increase activity as tolerated
--- NOTE | 2018-07-30 17:56 | Electrocardiograph Report ---
[address] [place] [address] Test Date: 2018-07-27 Pat Name: Placido Loco Department: [id number] Room: 3B46 Gender: M Test Technician: : [id number] Requested By: Jian Will Order Number: [id number] Reading MD: Isha Guadarrama Measurements Intervals [place] Rate: 83 P: 73 OR: 159 QRS: 30 QRSD: 98 T: QT: 391 QTc: 460 Interpretive Statements Sinus rhythm Low voltage, extremity leads Electronically Signed On 07-30-2018 17:54:39 EDT by Isha Guadarrama
[2018-07-31 10:38] LABS: AFP Tumor Marker Non-Pregnant 12 ng/mL (0-9)
[2018-07-31 10:57] LABS: ANA IgG by ELISA NONE DETECTED (None Detected); Myeloperoxidase Ab 0 AU/mL (0-19); Serine Protease-3 Antibody 0 AU/mL (0-19); Smooth Muscle Ab Titer IgG <1:20 (<1:20)
[2018-07-31 10:58] LABS: F-Actin (sm muscle) Ab IgG 24 Units (0-19)
== END 2018-07-29 16:04 | disposition home or self-care (01) ==
LOC: EMEROOARM 17:31 → 3BNU 17:31
PROVIDERS: ADMIT Pediatrics; ATTEND Pediatrics
PROC: ENDOEBX (2018-07-28 12:30)

== ENCOUNTER 2018-09-24 12:35 | Inpatient (IN) ==
--- NOTE | 2018-09-24 13:03 | Emergency Department Note ---
Disposition Clinical Impression: Aphthous ulcer, Dysphagia, Odynophagia, Elevated transaminase level, Hypokalemia Disposition: Admitted As Inpatient Condition: Fair General Adult HPI - General Chief complaint: ED General Medical Stated complaint: "Ulcers In Mouth" Time Seen by Provider: 09/24/18 12:56 - History of Present Illness Pain Scale: 4 - Related Data Home Medications Medication Instructions Recorded Confirmed RX: Diclofenac Sodium (24 HR) 100 mg PO DAILY 02/13/16 07/27/18 [Voltaren XR] Previous Rx's Medication Instructions Recorded RX: Escitalopram [Lexapro] 20 mg PO DAILY #30 tablet 02/17/16 RX: Chlordiazepoxide [Librium] See Taper PO TID 5 Days #5 capsule 07/29/18 Allergies Allergy/AdvReac Type Severity Reaction Status Date / Time No Known Allergies Allergy Verified 07/27/18 17:36 Past Medical History - Past Medical History Medical history: Reports: arthritis, other Surgical history: Reports: orthopedic, other (lumbar spine surgery) Psychiatric history: Reports: depression - Social History Smoking Status: Current every day smoker Smokeless Tobacco Status: No Alcohol use: Reports: heavy (Excessive EtOH intake/"Daily Fifth" of liquor. Admitted via ED for Withdrawal/EtOH detox 2015), recent Drug use: Reports: marijuana Course Vital Signs Temperature 97.5 F L 09/24/18 12:49 Pulse Rate 97 09/24/18 12:49 Respiratory Rate 18 09/24/18 12:49 Blood Pressure 146/94 09/24/18 12:49 O2 Sat by Pulse Oximetry 98 09/24/18 12:49 Temperature 98.1 F 09/24/18 17:14 Pulse Rate 96 09/24/18 17:14 Respiratory Rate 16 09/24/18 17:14 Blood Pressure 144/89 09/24/18 17:14 O2 Sat by Pulse Oximetry 93 09/24/18 17:14 Oxygen Delivery Oxygen Delivery Room Air Medical Decision Making - Lab Data Result diagrams: 09/24/18 13:41 09/24/18 13:41 Lab Results 09/24/18 09/24/18 09/24/18 Range/Units 13:17 13:17 13:23 WBC (4.3-11.1) K/mcL RBC (4.19-5.50) M/mcL Hgb (12.9-16.9) g/dL Hct (37.5-50.1) % MCV (83.0-100.0) fL MCH (28.0-33.3) pg MCHC (31.6-35.5) g/dL RDW (11.5-14.5) % Plt Count (140-400) K/mcL MPV (9.4-12.4) fL Immature Gran % (0-4) % Seg Neutrophils % % Lymphocytes % % Monocytes % % Eosinophils % % Basophils % % Neutrophils # (1.6-8.9) K/mcL Lymphocytes # (0.6-4.6) K/mcL Monocytes # (0.0-1.3) K/mcL Eosinophils # (0.0-0.6) K/mcL Basophils # (0.0-0.2) K/mcL Nucleated RBCs/100 WBC (0) /100 WBC Immature Plt Fraction (1.1-6.1) % ESR 56 H (0-10) mm/hr PT 13.0 H (9.4-12.1) Seconds INR 1.2 Sodium (136-145) mEq/L Potassium (3.5-5.1) mEq/L Chloride (98-107) mEq/L Carbon Dioxide (23-29) mEq/L BUN (8-23) mg/dL Creatinine (0.70-1.30) mg/dL Est GFR ( Amer) (> 60) Est GFR (Non-Af Amer) (> 60) BUN/Creatinine Ratio (6-26) Glucose (70-105) mg/dL Calculated Osmolality (280-300) Lactic Acid (0.5-2.2) mmol/L Calcium (8.6-10.3) mg/dL Magnesium (1.6-2.6) mg/dL Total Bilirubin (0.3-1.0) mg/dL AST (13-39) Units/L ALT (7-52) Units/L Alkaline Phosphatase (34-104) Units/L C-Reactive Protein (Less than 10) mg/L Serum Total Protein (6.4-8.9) g/dL Albumin (3.5-5.7) g/dL Globulin (2.4-3.5) g/dL Albumin/Globulin Ratio (1.1-2.2) Ethyl Alcohol (Less than 10) mg/dL Hep Bs Antigen (Nonreactive) Hep Bs Antibody mIU/mL Hep B Core IgM Ab (Nonreactive) Hepatitis C Ab Screen (Nonreactive) HIV Ag/Ab Combo Qual Nonreactive (Nonreactive) 09/24/18 09/24/18 09/24/18 Range/Units 13:41 13:41 15:09 WBC 5.6 (4.3-11.1) K/mcL RBC 3.60 L (4.19-5.50) M/mcL Hgb 13.1 (12.9-16.9) g/dL Hct 36.5 L (37.5-50.1) % MCV 101.4 H (83.0-100.0) fL MCH 36.4 H (28.0-33.3) pg MCHC 35.9 H (31.6-35.5) g/dL RDW 13.5 (11.5-14.5) % Plt Count 43 L (140-400) K/mcL MPV 12.5 H (9.4-12.4) fL Immature Gran % 0.9 (0-4) % Seg Neutrophils % 76.1 % Lymphocytes % 13.7 % Monocytes % 8.9 % Eosinophils % 0.2 % Basophils % 0.2 % Neutrophils # 4.3 (1.6-8.9) K/mcL Lymphocytes # 0.8 (0.6-4.6) K/mcL Monocytes # 0.5 (0.0-1.3) K/mcL Eosinophils # 0.0 (0.0-0.6) K/mcL Basophils # 0.0 (0.0-0.2) K/mcL Nucleated RBCs/100 WBC 0.4 H (0) /100 WBC Immature Plt Fraction 13.1 H (1.1-6.1) % ESR (0-10) mm/hr PT (9.4-12.1) Seconds INR Sodium 135 L (136-145) mEq/L Potassium 2.5 L* (3.5-5.1) mEq/L Chloride 91 L (98-107) mEq/L Carbon Dioxide 32 H (23-29) mEq/L BUN 15 (8-23) mg/dL Creatinine 0.67 L (0.70-1.30) mg/dL Est GFR ( Amer) > 60 (> 60) Est GFR (Non-Af Amer) > 60 (> 60) BUN/Creatinine Ratio 22 (6-26) Glucose 123 H (70-105) mg/dL Calculated Osmolality 282 (280-300) Lactic Acid 1.6 (0.5-2.2) mmol/L Calcium 9.3 (8.6-10.3) mg/dL Magnesium 1.4 L (1.6-2.6) mg/dL Total Bilirubin 3.1 H (0.3-1.0) mg/dL AST 264 H (13-39) Units/L ALT 103 H (7-52) Units/L Alkaline Phosphatase 289 H (34-104) Units/L C-Reactive Protein 44 H (Less than 10) mg/L Serum Total Protein 7.2 (6.4-8.9) g/dL Albumin 3.4 L (3.5-5.7) g/dL Globulin 3.8 H (2.4-3.5) g/dL Albumin/Globulin Ratio 0.9 L (1.1-2.2) Ethyl Alcohol < 10 (Less than 10) mg/dL Hep Bs Antigen (Nonreactive) Hep Bs Antibody mIU/mL Hep B Core IgM Ab (Nonreactive) Hepatitis C Ab Screen (Nonreactive) HIV Ag/Ab Combo Qual (Nonreactive) 09/24/18 Range/Units 15:09 WBC (4.3-11.1) K/mcL RBC (4.19-5.50) M/mcL Hgb (12.9-16.9) g/dL Hct (37.5-50.1) % MCV (83.0-100.0) fL MCH (28.0-33.3) pg MCHC (31.6-35.5) g/dL RDW (11.5-14.5) % Plt Count (140-400) K/mcL MPV (9.4-12.4) fL Immature Gran % (0-4) % Seg Neutrophils % % Lymphocytes % % Monocytes % % Eosinophils % % Basophils % % Neutrophils # (1.6-8.9) K/mcL Lymphocytes # (0.6-4.6) K/mcL Monocytes # (0.0-1.3) K/mcL Eosinophils # (0.0-0.6) K/mcL Basophils # (0.0-0.2) K/mcL Nucleated RBCs/100 WBC (0) /100 WBC Immature Plt Fraction (1.1-6.1) % ESR (0-10) mm/hr PT (9.4-12.1) Seconds INR Sodium (136-145) mEq/L Potassium (3.5-5.1) mEq/L Chloride (98-107) mEq/L Carbon Dioxide (23-29) mEq/L BUN (8-23) mg/dL Creatinine (0.70-1.30) mg/dL Est GFR ( Amer) (> 60) Est GFR (Non-Af Amer) (> 60) BUN/Creatinine Ratio (6-26) Glucose (70-105) mg/dL Calculated Osmolality (280-300) Lactic Acid (0.5-2.2) mmol/L Calcium (8.6-10.3) mg/dL Magnesium (1.6-2.6) mg/dL Total Bilirubin (0.3-1.0) mg/dL AST (13-39) Units/L ALT (7-52) Units/L Alkaline Phosphatase (34-104) Units/L C-Reactive Protein (Less than 10) mg/L Serum Total Protein (6.4-8.9) g/dL Albumin (3.5-5.7) g/dL Globulin (2.4-3.5) g/dL Albumin/Globulin Ratio (1.1-2.2) Ethyl Alcohol (Less than 10) mg/dL Hep Bs Antigen Nonreactive (Nonreactive) Hep Bs Antibody 0.00 mIU/mL Hep B Core IgM Ab Nonreactive (Nonreactive) Hepatitis C Ab Screen Nonreactive (Nonreactive) HIV Ag/Ab Combo Qual (Nonreactive) Critical Care Time Critical Care Time: Yes Total Critical Care Time: 30 Attestation: The high probability of a clinically significant, sudden or life threatening deterioration of the [] system(s) required my full and direct attention, intervention and personal management. The aggregate critical care time was [] minutes. This time is in addition to time spent performing reported procedures but includes the following: [] Data Review and interpretation [] Patient assessment and monitoring of vital signs [] Documentation [] Medication orders and management Attestation Statement - Attestation Attestation: I examined this patient and my medical decision-making was reviewed with the Resident Physician. I agree with the documented findings, disposition and treatment plan as described except to the extent set forth below. [id number] time provided Patient presents with sores intraorally. He does have what appears to be an aphthous gingivostomatitis as well as a swollen ecchymotic tongue. He admits to being an active alcoholic. There is no dysphonia
[2018-09-24] MEDS ORDERED: Acyclovir 800 MG in D5% in Water 250 ML IVPB ONE (13:19)
--- NOTE | 2018-09-24 13:43 | Emergency Department Note ---
Disposition Clinical Impression: Aphthous ulcer, Odynophagia, Elevated transaminase level, Hypokalemia Dysphagia Qualifiers: Dysphagia type: unspecified Qualified Code(s): R13.10 - Dysphagia, unspecified Disposition: Admitted As Inpatient Condition: Fair Referrals: NONE,PCP [Non-Partnered Physician] - Forms: ED Satisfaction Letter, Work/School Release Time of Disposition: 15:08 General Adult HPI - General Chief complaint: ED General Medical Stated complaint: "Ulcers In Mouth" Time Seen by Provider: 09/24/18 12:56 Source: patient Limitations: no limitations Nursing Notes Reviewed: Yes Vital Signs Reviewed: Yes - History of Present Illness HPI Narrative: Patient is a 63-year-old male with a history of alcohol abuse presenting to [facility] ED for ulcers in his mouth with dysphagia/odontophagia. Patient states that the dysphagia began one week ago and has progressively worsened to include painful swallowing as well as ulcerations in his mouth and swelling of his tongue. Patient states this is never happened him before. Patient states that he was in [facility] one week ago for treatment of pancreatitis. Patient admits to severely decreasing his alcohol intake in the past week. Pt Subjective Complaint: Ulcers in mouth Pain Severity: moderate Pain Scale: 4 - Related Data Home Medications Medication Instructions Recorded Confirmed Diclofenac Sodium (24 HR) 100 mg PO DAILY 02/13/16 07/27/18 [Voltaren XR] Previous Rx's Medication Instructions Recorded Escitalopram [Lexapro] 20 mg PO DAILY #30 tablet 02/17/16 Chlordiazepoxide [Librium] See Taper PO TID 5 Days #5 capsule 07/29/18 Allergies Allergy/AdvReac Type Severity Reaction Status Date / Time No Known Allergies Allergy Verified 07/27/18 17:36 All systems ED: reviewed and negative except as stated. Review of Systems: As Per HPI Constitutional: Denies: fever, chills Eyes: Denies: vision change ENT ED: Reports: throat pain, dysphagia Cardiovascular: Denies: chest pain Respiratory: Denies: dyspnea Gastrointestinal: Denies: abdominal pain, nausea, vomiting, hematochezia Genitourinary: Denies: hematuria Musculoskeletal: Denies: back pain, neck pain Neurological: Reports: headache, weakness. Denies: numbness, paresthesias Endocrine: Reports: fatigue Past Medical History - Past Medical History Medical history: Reports: arthritis, other Surgical history: Reports: orthopedic, other (lumbar spine surgery) Psychiatric history: Reports: depression - Social History Smoking Status: Current every day smoker Smokeless Tobacco Status: No Alcohol use: Reports: heavy (Excessive EtOH intake/"Daily Fifth" of liquor. Admitted via ED for Withdrawal/EtOH detox 2016), recent Drug use: Reports: marijuana Physical Exam - General Limitations: no limitations General appearance: alert, in no apparent distress - Head Head exam: atraumatic, normocephalic, normal inspection - Eye Eye exam: Present: normal appearance, PERRL, EOMI. Absent: scleral icterus, conjunctival injection - ENT ENT exam: other (There is ulceration of the oral mucosa with noted swelling and purple discoloration of the tongue with oral leukoplakia present.) - Neck Neck exam: Present: normal inspection, trachea midline - Chest Chest inspection: Present: normal inspection, symmetric chest wall rise - Respiratory Respiratory exam: Present: wheezes. Absent: respiratory distress, stridor, accessory muscle use, prolonged expiratory phase - Cardiovascular Cardiovascular exam: Present: regular rate, normal rhythm, +S1, +S2, +S4. Absent: rubs, gallop, JVD, +S3 - Abdominal Exam Abdominal exam: Present: soft, Non-Tender, normal bowel sounds. Absent: distention, guarding, rebound, rigidity, organomegaly - Neurological Exam Neurological exam: Present: alert, oriented X3 - Psychiatric Psychiatric exam: Present: normal affect, normal mood - Skin Skin exam: Present: warm, dry, intact, normal color. Absent: cyanosis, diaphoresis Course Course Narrative: Patient history, review systems, physical exam are concerning for viral etiology versus traumatic process. CBC, CMP, CRP, ESR, ethanol, PT/INR HIV panel and magnesium level will be performed to assess for potential pathology. Thiamine and acyclovir will be administered for management of patient's symptoms. - Reevaluation(s) Reevaluation #1: Patient potassium value critically low at 2.5. 40 mEq by mouth with 40 mEq IV rider administered over a four-hour period will be administered as well as 1 g of magnesium. Vital Signs Temperature 97.5 F L 09/24/18 12:49 Pulse Rate 97 09/24/18 12:49 Respiratory Rate 18 09/24/18 12:49 Blood Pressure 146/94 09/24/18 12:49 O2 Sat by Pulse Oximetry 98 09/24/18 12:49 Temperature 97.5 F L 09/24/18 13:01 Pulse Rate 86 09/24/18 14:20 Respiratory Rate 13 09/24/18 14:20 Blood Pressure 146/90 09/24/18 14:20 O2 Sat by Pulse Oximetry 98 09/24/18 13:01 Oxygen Delivery Oxygen Delivery Room Air Medical Decision Making - MDM Narrative Medical decision making narrative: Patient will be admitted to the hospitalist service for CIWA protocol, potassium/magnesium repletion, and IV acyclovir. Plan for admission discussed with the patient, and patient agrees with this plan. Hospitalist accepts admission, requests CT of the abdomen and pelvis performed due to elevated transaminases to rule out potential obstructive pathology. - Lab Data Lab results reviewed: Yes I reviewed the patient's lab results. Result diagrams: 09/24/18 13:41 09/24/18 13:41 Lab Results 09/24/18 09/24/18 09/24/18 Range/Units 13:17 13:17 13:23 WBC (4.3-11.1) K/mcL RBC (4.19-5.50) M/mcL Hgb (12.9-16.9) g/dL Hct (37.5-50.1) % MCV (83.0-100.0) fL MCH (28.0-33.3) pg MCHC (31.6-35.5) g/dL RDW (11.5-14.5) % Plt Count (140-400) K/mcL MPV (9.4-12.4) fL Immature Gran % (0-4) % Seg Neutrophils % % Lymphocytes % % Monocytes % % Eosinophils % % Basophils % % Neutrophils # (1.6-8.9) K/mcL Lymphocytes # (0.6-4.6) K/mcL Monocytes # (0.0-1.3) K/mcL Eosinophils # (0.0-0.6) K/mcL Basophils # (0.0-0.2) K/mcL Nucleated RBCs/100 WBC (0) /100 WBC Immature Plt Fraction (1.1-6.1) % ESR 56 H (0-10) mm/hr PT 13.0 H (9.4-12.1) Seconds INR 1.2 Sodium (136-145) mEq/L Potassium (3.5-5.1) mEq/L Chloride (98-107) mEq/L Carbon Dioxide (23-29) mEq/L BUN (8-23) mg/dL Creatinine (0.70-1.30) mg/dL Est GFR ( Amer) (> 60) Est GFR (Non-Af Amer) (> 60) BUN/Creatinine Ratio (6-26) Glucose (70-105) mg/dL Calculated Osmolality (280-300) Calcium (8.6-10.3) mg/dL Magnesium (1.6-2.6) mg/dL Total Bilirubin (0.3-1.0) mg/dL AST (13-39) Units/L ALT (7-52) Units/L Alkaline Phosphatase (34-104) Units/L C-Reactive Protein (Less than 10) mg/L Serum Total Protein (6.4-8.9) g/dL Albumin (3.5-5.7) g/dL Globulin (2.4-3.5) g/dL Albumin/Globulin Ratio (1.1-2.2) Ethyl Alcohol (Less than 10) mg/dL HIV Ag/Ab Combo Qual Nonreactive (Nonreactive) 09/24/18 09/24/18 Range/Units 13:41 13:41 WBC 5.6 (4.3-11.1) K/mcL RBC 3.60 L (4.19-5.50) M/mcL Hgb 13.1 (12.9-16.9) g/dL Hct 36.5 L (37.5-50.1) % MCV 101.4 H (83.0-100.0) fL MCH 36.4 H (28.0-33.3) pg MCHC 35.9 H (31.6-35.5) g/dL RDW 13.5 (11.5-14.5) % Plt Count 43 L (140-400) K/mcL MPV 12.5 H (9.4-12.4) fL Immature Gran % 0.9 (0-4) % Seg Neutrophils % 76.1 % Lymphocytes % 13.7 % Monocytes % 8.9 % Eosinophils % 0.2 % Basophils % 0.2 % Neutrophils # 4.3 (1.6-8.9) K/mcL Lymphocytes # 0.8 (0.6-4.6) K/mcL Monocytes # 0.5 (0.0-1.3) K/mcL Eosinophils # 0.0 (0.0-0.6) K/mcL Basophils # 0.0 (0.0-0.2) K/mcL Nucleated RBCs/100 WBC 0.4 H (0) /100 WBC Immature Plt Fraction 13.1 H (1.1-6.1) % ESR (0-10) mm/hr PT (9.4-12.1) Seconds INR Sodium 135 L (136-145) mEq/L Potassium 2.5 L* (3.5-5.1) mEq/L Chloride 91 L (98-107) mEq/L Carbon Dioxide 32 H (23-29) mEq/L BUN 15 (8-23) mg/dL Creatinine 0.67 L (0.70-1.30) mg/dL Est GFR ( Amer) > 60 (> 60) Est GFR (Non-Af Amer) > 60 (> 60) BUN/Creatinine Ratio 22 (6-26) Glucose 123 H (70-105) mg/dL Calculated Osmolality 282 (280-300) Calcium 9.3 (8.6-10.3) mg/dL Magnesium 1.4 L (1.6-2.6) mg/dL Total Bilirubin 3.1 H (0.3-1.0) mg/dL AST 264 H (13-39) Units/L ALT 103 H (7-52) Units/L Alkaline Phosphatase 289 H (34-104) Units/L C-Reactive Protein 44 H (Less than 10) mg/L Serum Total Protein 7.2 (6.4-8.9) g/dL Albumin 3.4 L (3.5-5.7) g/dL Globulin 3.8 H (2.4-3.5) g/dL Albumin/Globulin Ratio 0.9 L (1.1-2.2) Ethyl Alcohol < 10 (Less than 10) mg/dL HIV Ag/Ab Combo Qual (Nonreactive) - EKG Data EKG #1 EKG attestation: Yes I reviewed and interpreted this EKG. EKG results narrative: Patient EKG shows a sinus rhythm with normal rate and axis. Notably prolonged QT interval. Heart rate of 86 bpm MS interval of 146 ms QRS duration 97 ms, QT /QTc interval of 514/615 milliseconds respectively. There are no significant ST segment elevations or depressions, there is an isolated Q wave in V3, no abnormal T-wave inversions, or any other signs of acute ischemic change. This EKG is generally consistent with prior EKG performed on 07/27/2018.
[2018-09-24 14:08] LABS: Eosinophils % 0.2 %; Mean Corpuscular Volume 101.4 fL (83.0-100.0); Nucleated Red Blood Cells 0.4 /100 WBC (0)
[2018-09-24 14:10] LABS: Basophils % 0.2 %; Hematocrit 36.5 % (37.5-50.1); Hemoglobin 13.1 g/dL (12.9-16.9); Immature Granulocytes % 0.9 % (0-4); Immature Platelets 13.1 % (1.1-6.1); Lymphocytes # 0.8 K/mcL (0.6-4.6); Lymphocytes % 13.7 %; Mean Corpuscular HGB Conc 35.9 g/dL (31.6-35.5); Mean Corpuscular Hemoglobin 36.4 pg (28.0-33.3); Mean Platelet Volume 12.5 fL (9.4-12.4); Monocytes # 0.5 K/mcL (0.0-1.3); Monocytes % 8.9 %; Neutrophils # 4.3 K/mcL (1.6-8.9); Red Cell Distribution Width 13.5 % (11.5-14.5); Segmented Neutrophils % 76.1 %
[2018-09-24 14:14] LABS: INR 1.2
[2018-09-24 14:19] LABS: Platelet Count 43 K/mcL (140-400)
[2018-09-24 14:32] LABS: Alanine Aminotransferase 103 Units/L (7-52); Albumin 3.4 g/dL (3.5-5.7); Albumin/Globulin Ratio 0.9 (1.1-2.2); Alkaline Phosphatase 289 Units/L (34-104); Aspartate Amino Transferase 264 Units/L (13-39); BUN/Creatinine Ratio 22 (6-26); Bilirubin,Total 3.1 mg/dL (0.3-1.0); Blood Urea Nitrogen 15 mg/dL (8-23); C-Reactive Protein 44 mg/L (Less than 10); Calcium 9.3 mg/dL (8.6-10.3); Carbon Dioxide 32 mEq/L (23-29); Chloride 91 mEq/L (98-107); Ethanol < 10 mg/dL (Less than 10); Globulin 3.8 g/dL (2.4-3.5); Glucose 123 mg/dL (70-105); Magnesium 1.4 mg/dL (1.6-2.6); Osmolality,Calculated 282 (280-300); Potassium 2.5 mEq/L (3.5-5.1); Sodium 135 mEq/L (136-145); Total Protein 7.2 g/dL (6.4-8.9); eGFR For Non-African Americans > 60 (> 60)
[2018-09-24] MEDS: Thiamine (B-1) 100 MG, Folic Acid 1 MG, MVI, adult with vitamin K 10 ML in 0.9 % Sodi... IVPB SCH (15:10)
--- NOTE | 2018-09-24 16:01 | Internal Med History&Physical ---
<Lele Sahni Christiano - Last Filed: 09/24/18 17:55> Date of Encounter: 09/24/18 Time of Encounter: 15:30 Internal Medicine - H&P: HPI Chief complaint: Oral ulcer Admitted From: Emergency Dept Plans for Post Hospital Care: Home History of present illness: Mr. Loco is a 63 year old male with hx of significant alcohol use where he said he was drinking fifth liquor day started noticing sores in his mouth that b iliana 6 days ago. 3 days ago a larger, more painful ulcer appeared acutely on his R lateral tongue that has been increasing in size and bleeding. He describes it as a painful stinging. He has not had ulcers like the one on his tongue before and has not slowly been increasing in size over time. He has some pain when swallowing but minimal. Additionally complains of headache and generalized weakness during this time. He has not drank alcohol for 3 days and has recently been decreasing his alcohol intake to now 2 quarts/week. He says he has barely eaten in 2 weeks cause he has no appetite. He denies blurry vision, diplopia, confusion, chest pain, palpitations, abdominal pain, N/V, tremors, or seizures. In the ED he was found to be hypokalemic with K 2.5, given K replacement. Past Med Surg Social Fam HX - Past Medical History Medical history: arthritis, other Additional medical history: chronic back pain Psychiatric history: depression - Past Surgical History Surgical History: orthopedic, other (lumbar spine surgery) Additional surgical history: lumbar laminectomy, knee scope, tonsilectomy - Social History Smoking Status: Current every day smoker Smokeless Tobacco Status: No Alcohol use: heavy (Excessive EtOH intake/"Daily Fifth" of liquor. Admitted via ED for Withdrawal/EtOH detox 2015), recent Drug use: marijuana - Family History Mother Living Status: Father Living Status: Age at : 96 Hx Family Cardiac Disorders: Yes Internal Medicine - H&P: Meds Diclofenac Sodium (24 HR) [Voltaren XR] 100 mg PO DAILY 02/13/16 [History] Escitalopram [Lexapro] 20 mg PO DAILY #30 tablet 02/17/16 [Rx] Chlordiazepoxide [Librium] See Taper PO TID 5 Days #5 capsule 07/29/18 [Rx] Allergy/AdvReac Type Severity Reaction Status Date / Time No Known Allergies Allergy Verified 07/27/18 17:36 All Systems PM: A 10-system review of systems was performed and is negative for pertinent findings except as documented above in the HPI. - Constitutional Vitals: Temp Pulse Resp BP Pulse Ox 97.5 F L 86 13 146/90 98 09/24/18 13:01 09/24/18 14:20 09/24/18 14:20 09/24/18 14:20 09/24/18 13:01 Exam: General:Awake, alert, no acute distress or signs of toxicity Head: Atraumatic, normocephalic Eye: Pupils equal and round, EOMi, no scleral icterus ENT: Multiple apthus ulcers soft palate, R cheek, and R lateral tongue with swelling and bleeding under tongue, mucus membranes moist Chest: Symmetric chest rise, non tender to palpation Cardiac: RRR, S1/S2+, no murmurs, rubs, gallops appreciated, radial pulses 2+ bilat, no edema Pulmonary: Normal resp effort, adequate air movement, vesicular breath sounds, CTAB, no wheezes, rhonchi, rales appreciated Abdominal: Soft, non tender, non distended, no voluntary guarding, rebound, or rigidity. Back: Non tender, no CVA tenderness Extremities: No clubbing, cyanosis Neuro: CN's grossly intact, no focal deficits Psych: normal affect Integumentary: [place], warm, dry, intact Internal Med - H&P Results - Labs CBC & Chem 7: 09/24/18 13:41 09/24/18 13:41 Labs: Short CBC 09/24/18 Range/Units 13:41 WBC 5.6 (4.3-11.1) K/mcL Hgb 13.1 (12.9-16.9) g/dL Hct 36.5 L (37.5-50.1) % Plt Count 43 L (140-400) K/mcL Neutrophils # 4.3 (1.6-8.9) K/mcL BMP 09/24/18 13:41 Sodium 135 L Potassium 2.5 L* Chloride 91 L Carbon Dioxide 32 H BUN 15 Creatinine 0.67 L Glucose 123 H Calcium 9.3 Liver Function 09/24/18 Range/Units 13:41 Total Bilirubin 3.1 H (0.3-1.0) mg/dL AST 264 H (13-39) Units/L ALT 103 H (7-52) Units/L Alkaline Phosphatase 289 H (34-104) Units/L Albumin 3.4 L (3.5-5.7) g/dL - Assessment and plan (1) Hypokalemia Current Visit: Yes Status: Acute Assessment and plan: K 2.5 on admission Received 40 K and 1g Mg in ED No signs of hypokalemia or arrhythmias on ED ECG Will get another 40 K now and BMP/Mg tonight Replete as indicated (2) Alcohol abuse with physiological dependence Current Visit: No Status: Acute Assessment and plan: Long alcohol hx Recently drinking 1/5th liquor daily but recently decreasing to 2 quarts/week Last drink 3 days ago Will start CIWA protocol and banana bag now SW consult for alcohol dependence (3) Alcoholic hepatitis Current Visit: No Status: Acute Assessment and plan: Transaminases elevated in alcoholic pattern on arrival. AST 264, ALT 103 on arrival Viral hepatitis panel ordered in ED which are nonreactive Qualifiers: Ascites presence: without ascites Qualified Code(s): K70.10 - Alcoholic hepatitis without ascites (4) Thrombocytopenia Current Visit: No Status: Acute Assessment and plan: Platelets 43 on arrival Likely 2/2 alcohol use No overt bleeding Will continue to monitor (5) DVT prophylaxis Current Visit: No Status: Acute Assessment and plan: Mechanical (6) Aphthous ulcer Current Visit: Yes Status: Acute Assessment and plan: Multiple oral apthous ulcer present Single larger lesion on R lateral tongue that's swollen and bleeding Received acyclovir in the ED Will get HSV PCR swab of oral lesion Will continue acyclovir till PCR results and dc if not pos Will get Vit B levels, folate level - Time Spent With Patient Total time spent is greater than 50% in coordination of care (as documented) at patient's floor/unit and/or counseling patient: 25 - 35 minutes <Hiram Nielsen - Last Filed: 09/24/18 19:43> Date of Encounter: 09/24/18 Internal Medicine - H&P: HPI History of present illness: Mr. Loco is a 63 year old male All Systems PM: A 10-system review of systems was performed and is negative for pertinent findings except as documented above in the HPI. - Constitutional Vitals: Temp Pulse Resp BP Pulse Ox 98.1 F 96 16 144/89 93 09/24/18 17:14 09/24/18 17:14 09/24/18 17:14 09/24/18 17:14 09/24/18 17:14 Internal Med - H&P Results - Labs CBC & Chem 7: 09/24/18 13:41 09/24/18 13:41 Labs: Short CBC 09/24/18 Range/Units 13:41 WBC 5.6 (4.3-11.1) K/mcL Hgb 13.1 (12.9-16.9) g/dL Hct 36.5 L (37.5-50.1) % Plt Count 43 L (140-400) K/mcL Neutrophils # 4.3 (1.6-8.9) K/mcL BMP 09/24/18 13:41 Sodium 135 L Potassium 2.5 L* Chloride 91 L Carbon Dioxide 32 H BUN 15 Creatinine 0.67 L Glucose 123 H Calcium 9.3 Liver Function 09/24/18 Range/Units 13:41 Total Bilirubin 3.1 H (0.3-1.0) mg/dL AST 264 H (13-39) Units/L ALT 103 H (7-52) Units/L Alkaline Phosphatase 289 H (34-104) Units/L Albumin 3.4 L (3.5-5.7) g/dL - Impressions ITS Impressions Abdomen/Pelvis CT 09/24/18 14:48 IMPRESSION: Marked fatty infiltration of the liver. No biliary obstruction or worrisome hepatic lesion. Moderate sigmoid diverticulosis without diverticulitis. No other significant abnormality. No significant change from the prior study. D/ / Rene Dee MD / Rene Dee MD Interpreting Provider: Rene Dee MD - Assessment and plan (1) Alcoholic hepatitis Current Visit: No Status: Acute Qualifiers: Ascites presence: without ascites Qualified Code(s): K70.10 - Alcoholic hepatitis without ascites (2) Alcohol abuse with physiological dependence Current Visit: No Status: Acute (3) Hypokalemia Current Visit: Yes Status: Acute (4) DVT prophylaxis Current Visit: No Status: Acute (5) Thrombocytopenia Current Visit: No Status: Acute (6) Aphthous ulcer Current Visit: Yes Status: Acute (7) Hypomagnesemia Current Visit: Yes Status: Acute Assessment and plan: Replace today - Time Spent With Patient Total time spent is greater than 50% in coordination of care (as documented) at patient's floor/unit and/or counseling patient: - Attending Attestation I examined this patient and my medical decision-making was reviewed with the Resident Physician on 09/24/18. I agree with the documented findings, disposition and treatment plan as described except to the extent set forth below. Mr Loco presented to ED with complaints of mouth pain. No fever or chills. Progressively worse. Has been drinking alcohol as well. He has not been eating or drinking much. No CP or SOB. No abd pain. Currently he is feeling some pain in his mouth. He is anxious and tearful. Exam alert tearful Mucus membranes dry. Multiple ulcerations noted. Heart reg and not tachy Lungs clear Abd soft and nontender No edema No tremor I/P 1. Oral ulcers - ? herpes 2. Alcoholic hepatitis 3. Chronic ETOH 4. Hypokalemia 5. Hypomagnesemia Further diagnoses and plan as above.
[2018-09-24 16:29] LABS: Hepatitis B Core IgM Nonreactive (Nonreactive); Hepatitis B Surface Antigen Nonreactive (Nonreactive); Hepatitis C Virus Antibody Nonreactive (Nonreactive)
[2018-09-24] MEDS ORDERED: Potassium Chloride 40 MEQ, Lidocaine 1% 2 ML in D5% in Water 500 ML IVPB ONE (16:44)
[2018-09-24] MEDS ORDERED: Acetaminophen 325 MG TABLET PO PRN (17:11)
[2018-09-24] MEDS ORDERED: Ondansetron 4 MG/2 ML VIAL IVP PRN (17:11)
[2018-09-24] MEDS ORDERED: Naloxone 0.4 MG/ML INJ IVP PRN (17:11)
[2018-09-24] MEDS ORDERED: *HR* LORazepam 2 MG/ML VIAL IVP PRN ×3 (17:11)
[2018-09-24 18:28] LABS: Amphetamine Screen,Urine Negative ng/mL (Cutoff=1000); Barbiturate Screen,Urine Negative ng/mL (Cutoff=200); Benzodiazepines Screen,Urine Negative ng/mL (Cutoff=200); Cannabinoid Screen,Urine Positive ng/mL (Cutoff = 50); Cocaine Screen,Urine Negative ng/mL (Cutoff= 300); Opiate Screen,Urine Negative ng/mL (Cutoff=300); Phencyclidine Screen,Urine Negative ng/mL (Cutoff=25)
[2018-09-24] MEDS: Stomatitis Mixture 5 ML UDC PO SCH ×2 (19:01→21:47)
[2018-09-24] MEDS: Nicotine 21 MG PATCH.TD24 TD SCH (19:41)
[2018-09-24 22:24] LABS: BUN/Creatinine Ratio 19 (6-26); Blood Urea Nitrogen 11 mg/dL (8-23); Calcium 8.4 mg/dL (8.6-10.3); Carbon Dioxide 31 mEq/L (23-29); Chloride 94 mEq/L (98-107); Glucose 124 mg/dL (70-105); Magnesium 1.8 mg/dL (1.6-2.6); Osmolality,Calculated 277 (280-300); Potassium 2.8 mEq/L (3.5-5.1); Sodium 133 mEq/L (136-145); eGFR For Non-African Americans > 60 (> 60)
[2018-09-24] MEDS: Acyclovir 750 MG in D5% in Water 250 ML IVPB SCH (23:47)
[2018-09-25 04:50] LABS: Mean Corpuscular Volume 101.9 fL (83.0-100.0); Red Cell Distribution Width 13.5 % (11.5-14.5)
[2018-09-25 04:52] LABS: Hematocrit 31.7 % (37.5-50.1); Hemoglobin 11.4 g/dL (12.9-16.9); Immature Platelets 15.2 % (1.1-6.1); Mean Corpuscular Hemoglobin 36.7 pg (28.0-33.3); Red Blood Count 3.11 M/mcL (4.19-5.50)
[2018-09-25 05:09] LABS: BUN/Creatinine Ratio 17 (6-26); Blood Urea Nitrogen 9 mg/dL (8-23); Calcium 8.3 mg/dL (8.6-10.3); Carbon Dioxide 30 mEq/L (23-29); Chloride 95 mEq/L (98-107); Glucose 87 mg/dL (70-105); Magnesium 1.7 mg/dL (1.6-2.6); Osmolality,Calculated 274 (280-300); Potassium 2.4 mEq/L (3.5-5.1); Sodium 133 mEq/L (136-145); eGFR For Non-African Americans > 60 (> 60)
[2018-09-25] MEDS ORDERED: POTASSIUM PHOSPHATE IVPB ONE (05:21)
[2018-09-25] MEDS ORDERED: SODIUM CHLORIDE 0.9% IVPB ONE (05:21)
--- NOTE | 2018-09-25 06:12 | Internal Med Progress Note ---
<Lele Sahni - Last Filed: 09/25/18 13:11> Hospitalist Progress Note - Encounter Date of Encounter: 09/25/18 Time of Encounter: 07:15 - Subjective Interval History: Laying comfortably in bed. No new complaints today. Oral lesions still sting but less. Still pain with swallowing. Denies blurry vision, diplopia, confusion, chest pain, palpitations, abdominal pain, N/V, tremors, or seizures. - Exam Vitals: Temp Pulse Resp BP Pulse Ox 98.8 F 69 14 113/72 95 09/25/18 03:54 09/25/18 03:54 09/25/18 03:54 09/25/18 03:54 09/25/18 03:54 Exam: General:Awake, alert, no acute distress or signs of toxicity Head: Atraumatic, normocephalic Eye: Pupils equal and round, EOMi, no scleral icterus ENT: Multiple apthus ulcers soft palate, R cheek, and R lateral tongue with swelling and bleeding under tongue, mucus membranes moist Chest: Symmetric chest rise, non tender to palpation Cardiac: RRR, S1/S2+, no murmurs, rubs, gallops appreciated, radial pulses 2+ bilat, no edema Pulmonary: Normal resp effort, adequate air movement, vesicular breath sounds, CTAB, no wheezes, rhonchi, rales appreciated Abdominal: Soft, non tender, non distended, no voluntary guarding, rebound, or rigidity. Back: Non tender, no CVA tenderness Extremities: No clubbing, cyanosis Neuro: CN's grossly intact, no focal deficits Psych: normal affect Integumentary: [place], warm, dry, intact - Assessment and Plan (1) Aphthous ulcer Current Visit: Yes Status: Acute Assessment and Plan: Multiple oral apthous ulcer present Single larger lesion on R lateral tongue that's swollen and bleeding Received acyclovir in the ED HSV PCR swab of oral lesion pending Will continue acyclovir till PCR results and dc if not pos B12 and folate high (2) Alcoholic hepatitis Current Visit: No Status: Acute Assessment and Plan: Transaminases elevated in alcoholic pattern on arrival. AST 264, ALT 103 on arrival Viral hepatitis panel ordered in ED which are nonreactive CT abd/pelvis 10/04/18 Marked fatty infiltration of the liver. No biliary obstruction or worrisome hepatic lesion. Moderate sigmoid diverticulosis without diverticulitis. No other significant abnormality. No significant change from the prior study. Will check LFTs in am (3) Alcohol abuse with physiological dependence Current Visit: No Status: Acute Assessment and Plan: Long alcohol hx Recently drinking 1/5th liquor daily but recently decreasing to 2 quarts/week Last drink 09/21/18 Continue CIWA protocol and banana bag Received no lorazepam per [facility] yet SW consulted for alcohol dependence (4) Hypokalemia Current Visit: Yes Status: Acute Assessment and Plan: K 2.5 on admission Received 40 K and 1g Mg in ED No signs of hypokalemia or arrhythmias on ED ECG Received 120 meq K since transfer from floor Repeat K 2.8 last night, and 2.4 today after more K Will monitor and replete as indicated (5) Thrombocytopenia Current Visit: No Status: Acute Assessment and Plan: Platelets 43 on arrival Likely 2/2 alcohol use No overt bleeding Platelets lower today at 37 Will continue to monitor (6) Hypomagnesemia Current Visit: Yes Status: Acute Assessment and Plan: Mg 1.4 on arrival 1g Mg in ED Repeat last night 1.8 Mg 1.7 today, will give 2g today DVT Prophylaxis: Mechanical - Time Spent with Patient Total time spent is greater than 50% in coordination of care (as documented) at patient's floor/unit and/or counseling patient: less than 15 minutes Plan of Care Discussed with: patient Internal Medicine: Result - Labs CBC & Chem 7: 09/25/18 03:21 09/25/18 11:52 Labs: Short CBC 09/24/18 09/25/18 Range/Units 13:41 03:21 WBC 5.6 5.2 (4.3-11.1) K/mcL Hgb 13.1 11.4 L D (12.9-16.9) g/dL Hct 36.5 L 31.7 L (37.5-50.1) % Plt Count 43 L 37 L (140-400) K/mcL Neutrophils # 4.3 (1.6-8.9) K/mcL BMP 09/24/18 09/24/18 09/25/18 13:41 21:36 03:21 Sodium 135 L 133 L 133 L Potassium 2.5 L* 2.8 L 2.4 L* Chloride 91 L 94 L 95 L Carbon Dioxide 32 H 31 H 30 H BUN 15 11 9 Creatinine 0.67 L 0.57 L 0.54 L Glucose 123 H 124 H 87 Calcium 9.3 8.4 L 8.3 L Liver Function 09/24/18 Range/Units 13:41 Total Bilirubin 3.1 H (0.3-1.0) mg/dL AST 264 H (13-39) Units/L ALT 103 H (7-52) Units/L Alkaline Phosphatase 289 H (34-104) Units/L Albumin 3.4 L (3.5-5.7) g/dL - ABG Interpretation ABG results: PT/INR, D-dimer PT 13.0 Seconds (9.4-12.1) H 09/24/18 13:17 - Impressions Impressions Abdomen/Pelvis CT 09/24/18 14:48 IMPRESSION: Marked fatty infiltration of the liver. No biliary obstruction or worrisome hepatic lesion. Moderate sigmoid diverticulosis without diverticulitis. No other significant abnormality. No significant change from the prior study. D/ / Rene Dee MD / Rene Dee MD Interpreting Provider: Rene Dee MD Consult Discharge Plan - Plan Referrals: Sheng Frazier DO [Primary Care Provider] - <Hiram Nielsen - Last Filed: 09/25/18 17:42> Hospitalist Progress Note - Encounter Date of Encounter: 09/25/18 - Exam Vitals: Temp Pulse Resp BP Pulse Ox 98.5 F 86 16 111/75 99 09/25/18 15:41 09/25/18 15:41 09/25/18 15:41 09/25/18 15:41 09/25/18 15:41 - Assessment and Plan (1) Alcoholic hepatitis Current Visit: No Status: Acute (2) Alcohol abuse with physiological dependence Current Visit: No Status: Acute (3) Hypokalemia Current Visit: Yes Status: Acute (4) Thrombocytopenia Current Visit: No Status: Acute (5) Aphthous ulcer Current Visit: Yes Status: Acute (6) Hypomagnesemia Current Visit: Yes Status: Acute (7) Tobacco abuse Current Visit: Yes Status: Chronic - Time Spent with Patient Total time spent is greater than 50% in coordination of care (as documented) at patient's floor/unit and/or counseling patient: Internal Medicine: Result - Labs CBC & Chem 7: 09/25/18 03:21 09/25/18 11:52 Labs: Short CBC 09/25/18 Range/Units 03:21 WBC 5.2 (4.3-11.1) K/mcL Hgb 11.4 L D (12.9-16.9) g/dL Hct 31.7 L (37.5-50.1) % Plt Count 37 L (140-400) K/mcL BMP 09/24/18 09/25/18 09/25/18 21:36 03:21 11:52 Sodium 133 L 133 L 133 L Potassium 2.8 L 2.4 L* 3.0 L Chloride 94 L 95 L 96 L Carbon Dioxide 31 H 30 H 29 BUN 11 9 10 Creatinine 0.57 L 0.54 L 0.60 L Glucose 124 H 87 111 H Calcium 8.4 L 8.3 L 8.2 L - ABG Interpretation ABG results: PT/INR, D-dimer PT 13.0 Seconds (9.4-12.1) H 09/24/18 13:17 - Attending Attestation I examined this patient and my medical decision-making was reviewed with the Resident Physician on 09/25/18. I agree with the documented findings, disposition and treatment plan as described except to the extent set forth below. Mr Loco is currently admitted for oral ulcers and ETOH issues. He remains moderate to high risk due to potential for worsening clinical status. His potassium and magnesium remain low. Mr Loco feels OK. Mouth is about the same. No fever or chills. No tremor. Receiving supplementation of electrolytes. Exam alert Comfortable Mucus membranes dry. Ulcerations still present Heart reg No wheeze abd soft No tremor. IP 1. Hypokalemia 2. Hypomagnesemia 3. ETOH 4. Oral ulcers Further diagnoses and plan as above <Lele Sahni - Last Filed: 09/25/18 13:11> (2) Alcoholic hepatitis Qualifiers: Ascites presence: without ascites Qualified Code(s): K70.10 - Alcoholic hepatitis without ascites <Hiram Nielsen - Last Filed: 09/25/18 17:42> (1) Alcoholic hepatitis Qualifiers: Ascites presence: without ascites Qualified Code(s): K70.10 - Alcoholic hepatitis without ascites
[2018-09-25] MEDS: Diclofenac Sodium (24 HR) 100 MG TABLET PO SCH (09:01)
[2018-09-25] MEDS: Nicotine 21 MG PATCH.TD24 TD SCH (09:01)
[2018-09-25] MEDS: Stomatitis Mixture 5 ML UDC PO SCH ×4 (09:01→20:49)
[2018-09-25] MEDS: Acyclovir 750 MG in D5% in Water 250 ML IVPB SCH ×2 (10:27→18:06)
[2018-09-25 12:28] LABS: BUN/Creatinine Ratio 17 (6-26); Blood Urea Nitrogen 10 mg/dL (8-23); Calcium 8.2 mg/dL (8.6-10.3); Carbon Dioxide 29 mEq/L (23-29); Chloride 96 mEq/L (98-107); Glucose 111 mg/dL (70-105); Magnesium 2.1 mg/dL (1.6-2.6); Osmolality,Calculated 276 (280-300); Phosphorous 3.6 mg/dL (2.7-4.5); Sodium 133 mEq/L (136-145); eGFR For Non-African Americans > 60 (> 60)
[2018-09-25] MEDS: Thiamine (B-1) 100 MG, Folic Acid 1 MG, MVI, adult with vitamin K 10 ML in 0.9 % Sodi... IVPB SCH (16:58)
--- NOTE | 2018-09-25 17:10 | Electrocardiograph Report ---
[address] [address] Test Date: 2018-09-24 Pat Name: Placido Loco Department: EXAM7 Room: 3B14 Gender: M Historiographer: : 1955 Requested By: Gabino Fleming Order Number: [id number] Reading MD: Bob Gaspar Measurements Intervals [place] Rate: 86 P: 50 WV: 146 QRS: 50 QRSD: 97 T: 22 QT: 514 QTc: 615 Interpretive Statements Sinus rhythm Nonspecific ST-T changes Prolonged QT interval Electronically Signed On 09-25-2018 17:08:31 EST by Bob Gaspar
[2018-09-25 21:16] LABS: BUN/Creatinine Ratio 19 (6-26); Blood Urea Nitrogen 15 mg/dL (8-23); Calcium 8.1 mg/dL (8.6-10.3); Carbon Dioxide 32 mEq/L (23-29); Chloride 96 mEq/L (98-107); Glucose 122 mg/dL (70-105); Osmolality,Calculated 282 (280-300); Potassium 2.9 mEq/L (3.5-5.1); Sodium 135 mEq/L (136-145); eGFR For Non-African Americans > 60 (> 60)
[2018-09-26] MEDS: Acyclovir 750 MG in D5% in Water 250 ML IVPB SCH ×3 (00:15→16:17)
[2018-09-26 03:14] LABS: Mean Corpuscular HGB Conc 35.7 g/dL (31.6-35.5)
[2018-09-26 03:16] LABS: Hematocrit 31.1 % (37.5-50.1); Hemoglobin 11.1 g/dL (12.9-16.9); Immature Platelets 12.7 % (1.1-6.1); Mean Corpuscular Hemoglobin 36.8 pg (28.0-33.3); Mean Platelet Volume 12.1 fL (9.4-12.4); Red Blood Count 3.02 M/mcL (4.19-5.50); Red Cell Distribution Width 13.5 % (11.5-14.5)
[2018-09-26 03:32] LABS: Albumin 2.8 g/dL (3.5-5.7); Albumin/Globulin Ratio 0.8 (1.1-2.2); Bilirubin,Direct 1.8 mg/dL (0.0-0.2); Bilirubin,Indirect 0.9 mg/dL (0.0-1.2); Bilirubin,Total 2.7 mg/dL (0.3-1.0); Globulin 3.4 g/dL (2.4-3.5); Total Protein 6.2 g/dL (6.4-8.9)
[2018-09-26 03:33] LABS: BUN/Creatinine Ratio 22 (6-26); Blood Urea Nitrogen 14 mg/dL (8-23); Calcium 8.1 mg/dL (8.6-10.3); Carbon Dioxide 28 mEq/L (23-29); Chloride 97 mEq/L (98-107); Glucose 94 mg/dL (70-105); Magnesium 1.9 mg/dL (1.6-2.6); Osmolality,Calculated 276 (280-300); Phosphorous 3.2 mg/dL (2.7-4.5); Potassium 2.8 mEq/L (3.5-5.1); Sodium 133 mEq/L (136-145); eGFR For Non-African Americans > 60 (> 60)
[2018-09-26] MEDS ORDERED: Potassium Chloride 40 MEQ, Lidocaine 1% 2 ML in D5% in Water 500 ML IVPB ONE (07:39)
[2018-09-26] MEDS: Stomatitis Mixture 5 ML UDC PO SCH ×2 (07:57→12:13)
[2018-09-26] MEDS: Nicotine 21 MG PATCH.TD24 TD SCH (07:58)
[2018-09-26] MEDS: Diclofenac Sodium (24 HR) 100 MG TABLET PO SCH (09:28)
[2018-09-26 15:02] VITALS: BP 132/79
--- NOTE | 2018-09-26 16:27 | Discharge Summary ---
- NOTES TO OUTPATIENT PROVIDER Notes to Outpatient Provider: Pt admitted for profound hypokalemia and hypomagnesemia. He had relapsed with alcohol. His electrolytes have been replaced and he is following up with rehab for alcohol. Orders not resulted at time of discharge: Pending orders 09/24/18 15:09 Hepatitis A Antibody Total Stat 09/24/18 17:07 Herpes Simplex PCR Body Fl Routine 09/24/18 17:47 Vitamin B1 (Thiamine) Whole Bl Routine Vitamin B2 (Riboflavin) Routine Vitamin B6 (Pyridoxal 5-Phos Routine 09/27/18 04:00 Basic Metabolic Panel AM 0400 CBC no Diff [Complete Blood Count w/o Diff] [HEME] AM 0400 Magnesium AM 0400 Phosphorous AM 0400 09/28/18 04:00 Basic Metabolic Panel AM 0400 CBC no Diff [Complete Blood Count w/o Diff] [HEME] AM 0400 Magnesium AM 0400 Phosphorous AM 0400 Date of Encounter: 09/26/18 Time of Encounter: 16:20 - Discharge Diagnosis (1) Oral herpes simplex infection Priority: Secondary Status: Suspected (2) Alcoholic hepatitis Priority: Primary Status: Acute Qualifiers: Ascites presence: without ascites Qualified Code(s): K70.10 - Alcoholic hepatitis without ascites (3) Alcohol abuse with physiological dependence Priority: Secondary Status: Acute (4) Hypokalemia Priority: Secondary Status: Acute (5) Thrombocytopenia Priority: Secondary Status: Chronic (6) Aphthous ulcer Priority: Secondary Status: Acute (7) Hypomagnesemia Priority: Secondary Status: Resolved (8) Tobacco abuse Priority: Secondary Status: Chronic Hospital course: Mr. Loco is a 63 year old male with hx of ETOH dependence presented to ED due to mouth sores. He was evaluated and found to be profoundly hypokalemic and hypomagnesemic. He was subsequently admitted. Mr Loco was admitted to med surg. He was started on IV hydration and vitamin supplementation. He was placed on IV acyclovir for oral ulcers. He was started on CIWA and Librium added. His K and Mag were replaced multiple times. He had no overt ETOH withdrawal. Today he is afebrile. He feels well. His K is now 3.2 and mag normal. He has been given a PO dose of K and will have some at home for next 5 days. He will taper librium and complete course of antiviral and follow up with PCP. Discharge discussed with: patient, nurse Time spent discussing smoking cessation with patient: 3 to 10 minutes - Time Spent with Patient Total time spent providing and/or coordinating discharge services:41min - Discharge Medications Prescriptions: Chlordiazepoxide [Librium] 25 mg PO BID 2 Days #5 capsule Potassium Chloride 20 meq PO DAILY #5 tab.er.prt Valacyclovir HCl [Valtrex] 1,000 mg PO Q12H #11 tab Home Medications: Diclofenac Sodium (24 HR) [Voltaren XR] 100 mg PO DAILY 02/13/16 [History] Escitalopram [Lexapro] 20 mg PO DAILY #30 tablet 02/17/16 [Rx] Chlordiazepoxide [Librium] 25 mg PO BID 2 Days #5 capsule 09/26/18 [Rx] Nicotine Patch [Nicoderm] 21 mg TD DAILY patch.td24 09/26/18 [Rx] Potassium Chloride 20 meq PO DAILY #5 tab.er.prt 09/26/18 [Rx] Valacyclovir HCl [Valtrex] 1,000 mg PO Q12H #11 tab 09/26/18 [Rx] Allergies/Adverse Reactions: Allergy/AdvReac Type Severity Reaction Status Date / Time No Known Allergies Allergy Verified 09/24/18 21:43 Date of admission: 09/24/18 15:23 Primary care physician: Sheng López Colopy Consults: 09/24/18 17:12 Consult to Gaming Investigator [CONS] Routine Reason for SW Consult: Alcohol abuse Discharging clinician: Hiram Nielsen Anticipated date of discharge: 09/26/18 - Constitutional Vitals: Temp Pulse Resp BP Pulse Ox 97.9 F 54 16 132/79 96 09/26/18 15:00 09/26/18 15:00 09/26/18 15:00 09/26/18 15:00 09/26/18 15:00 General appearance: Present: A&O X 3, pleasant, answers questions appropriately Exam: See below - Head Head exam: Present: normocephalic - Eye Eye exam: Present: EOMI, conjuntiva pink - ENT ENT exam: Present: mucous membranes moist Additional comments: Ulcerations improving. - Respiratory Respiratory exam: Present: CTAB. Absent: rales, rhonchi, wheezes - Cardiovascular Cardiovascular exam: Present: RRR. Absent: tachycardia - GI/Abdominal GI/Abdominal exam: Present: soft. Absent: tenderness - Extremities Exam Extremities exam: Present: warm. Absent: tenderness - Neurological Exam Neurological exam: Present: alert, oriented X3, no focal deficits - Skin Skin exam: Present: dry, warm - Patient Status Disposition: Home, Self-Care Condition: Fair Functional capacity at discharge: independent ambulation Overall status at discharge: patient is progressing back to baseline - Discharge Instructions Follow Up With: Sheng Frazier DO [Primary Care Provider] - - Diet and Activity Activity: increase activity as tolerated Diet: advance to your usual diet
== END 2018-09-26 17:01 | disposition home or self-care (01) | DRG 159 ==
LOC: EMEROOARM 12:35 → SUATTDRO 15:23 → 3BNU 15:23
PROVIDERS: ADMIT Internal Medicine; ATTEND Internal Medicine